=== PATIENT | male | born 1960 | race Caucasian/White ===

== ENCOUNTER → 2018-09-14 11:48 | Outpatient (CLI) | payer MEDICARE, SELFPAY ==
[2018-09-14 15:29] LABS: Absolute Lymphocyte Count 1.44 X10^3/ul (0.83-4.51); Absolute Neutrophil Count 5.3 X10^3/uL (2.0-7.7); Basophil# 0.02 X10^3/uL; Basophil% 0.3 % (0-1); Eosinophil# 0.13 X10^3/uL; Eosinophils% 1.8 % (0-5); Hematocrit 41.1 % (40-54); Hemoglobin 13.1 g/dl (13.0-16.5); Lymphocyte # 1.44 X10^3/ul (4.0); Lymphocyte % 20.1 % (19-41); Mean Corp Hgb Conc 31.9 g/gl (32-36); Mean Corpuscular Hgb 27.2 pg (27.0-32.0); Mean Corpuscular Volume 85.3 fL (80-94); Mean Platelet Vol. 10.9 fl (6.2-12.0); Monocyte# 0.27 X10^3/uL; Monocyte% 3.8 % (0-10); Neutrophil # 5.29 X10^3/uL (2.7-7.7); Neutrophil % 73.7 % (47-70); Platelet Count 170 K/mm3 (150-450); RBC Distribution Width CV 14.8 % (11.6-14.6); RBC Distribution Width SD 45.7 fl (35.1-43.9); Red Blood Count 4.82 M/mm3 (4.6-6.2); White Blood Count 7.2 K/mm3 (4.4-11.0)
[2018-09-14 15:34] LABS: POSITIVE COUNT NO; POSITIVE DIFFERENTIAL NO; POSITIVE MORPHOLOGY NO
[2018-09-14 15:50] LABS: ALB/GLOB Ratio 1.2 RATIO (0.9-2.4); AST(SGOT) 14 U/L (15-37); Alanine Aminotransfer ALT/SGPT 17 U/L (16-61); Albumin, Serum 4.4 g/dL (3.2-5.0); Alkaline Phosphatase 131 U/L (45-117); Anion Gap 6 (5-15); BUN 21 mg/dL (7-18); BUN/Creat Ratio 15.8 RATIO (10-20); Chloride 111 mmol/L (98-107); Creatinine, Serum 1.33 mg/dL (0.70-1.30); EST Glomerular Filtration Rate 58 mL/min (>60); Est Glom Filt Rate - Afr Amer 71 mL/min (>60); Globulin 3.8 g/dL (2.2-4.2); Glucose 81 mg/dL (74-106); Potassium 4.2 mmol/L (3.5-5.1); Protein, Total 8.2 g/dL (6.4-8.2); Sodium Level 140 mmol/L (136-145); Thyroid Stim Hormone (TSH) 2.05 uIU/mL (0.358-3.74)
== END ==
PROVIDERS: Family Provider Family Medicine; PCP Family Medicine; Referring Provider Family Medicine; Visit Provider Family Medicine
DX: G61.89 Other inflammatory polyneuropathies (principal); F80.9 Developmental disorder of speech and language, unspecified
CPT/HCPCS: 36415; 80053; 84443; 85025

== ENCOUNTER → 2018-10-08 16:43 | Outpatient (CLI) | payer MEDICARE, SELFPAY ==
--- NOTE | 2018-10-08 16:53 | CT_ITS ---
STUDY: CT BRAIN WITH AND WITHOUT CONTRAST REASON FOR EXAM: Male, 58 years old. Speech defect for 6 months RADIATION DOSAGE (If Supplied By Facility): CTDIvol = ( 44.99 ) mGy, DLP = ( 1580.97 ) mGycm TECHNIQUE: Transaxial CT imaging of the brain was performed pre and post contrast administration. The examination was performed with intravenous administration of 100 IV Isovue 370. Individualized dose optimization techniques were used for this CT. COMPARISON: None. FINDINGS: Brain parenchyma is intact without focal lesions or abnormal enhancement. There is no acute intracranial hemorrhage, extra parenchymal fluid collections, mass effect, hydrocephalus or herniation. The skull is intact. CT/Brain/Head W/WO Contrast IMPRESSION: Normal unenhanced and enhanced CT scan of the brain. Electronically Signed: Roseline Martinez, at 17:20 EDT Tel , Service support ,
== END ==
PROVIDERS: Family Provider Family Medicine; PCP Family Medicine; Referring Provider Family Medicine; Visit Provider Family Medicine
DX: F80.9 Developmental disorder of speech and language, unspecified (principal)
CPT/HCPCS: 70470; Q9967

== ENCOUNTER → 2018-12-15 11:10 | Outpatient (CLI) | payer MEDICARE, SELFPAY ==
[2018-12-15 12:54] LABS: Vitamin B12 393 pg/mL (211-911)
== END ==
PROVIDERS: Family Provider Family Medicine; PCP Family Medicine; Referring Provider Family Medicine; Visit Provider Family Medicine
DX: G61.89 Other inflammatory polyneuropathies (principal)
CPT/HCPCS: 36415; 82607; 82746

== ENCOUNTER → 2020-05-29 10:49 | Outpatient (CLI) | payer MEDICARE, SELFPAY ==
[2020-05-29 12:51] LABS: Absolute Lymphocyte Count 1.08 X10^3/uL (0.83-4.51); Absolute Neutrophil Count 4.4 X10^3/uL (2.0-7.7); Basophil# 0.05 X10^3/uL; Basophil% 0.8 % (0-1); Eosinophil# 0.14 X10^3/uL; Eosinophils% 2.3 % (0-5); Hemoglobin 12.4 g/dL (13.0-16.5); Lymphocyte # 1.08 X10^3/ul (4.0); Lymphocyte % 18.1 % (19-41); Mean Corp Hgb Conc 31.8 g/dL (32-36); Mean Corpuscular Hgb 28.8 pg (27.0-32.0); Mean Corpuscular Volume 90.7 fL (80-94); Mean Platelet Vol. 10.3 fl (6.2-12.0); Monocyte# 0.25 X10^3/uL; Monocyte% 4.2 % (0-10); NRBC Flagged by Analyzer 0 % (0-5); Neutrophil # 4.43 X10^3/uL (2.7-7.7); Neutrophil % 74.3 % (47-70); Platelet Count 161 K/mm3 (150-450); RBC Distribution Width CV 13.4 % (11.6-14.6); RBC Distribution Width SD 45.1 fl (35.1-43.9)
[2020-05-29 12:56] LABS: Vitamin B12 441 pg/mL (211-911)
[2020-05-29 13:11] LABS: AST(SGOT) 23 U/L (15-37); Alanine Aminotransfer ALT/SGPT 32 U/L (16-61); Alkaline Phosphatase 119 U/L (45-117); Anion Gap 6 (5-15); BUN 14 mg/dL (7-18); BUN/Creat Ratio 10.8 RATIO (10-20); Bilirubin, Direct 0.09 mg/dL (0.00-0.30); Chloride 110 mmol/L (98-107); Cholesterol 313 mg/dL (200); EST Glomerular Filtration Rate 60 mL/min (>60); Est Glom Filt Rate - Afr Amer 72 mL/min (>60); Globulin 4.2 g/dL (2.2-4.2); Glucose 92 mg/dL (74-106); High Density Lipoprotein 37 mg/dL; Protein, Total 8.2 g/dL (6.4-8.2); Sodium Level 140 mmol/L (136-145); Thyroid Stim Hormone (TSH) 1.61 uIU/mL (0.358-3.74); Triglycerides 591 mg/dL
== END ==
PROVIDERS: PCP Family Medicine; Referring Provider Family Medicine; Visit Provider Family Medicine
DX: G61.89 Other inflammatory polyneuropathies (principal); F31.9 Bipolar disorder, unspecified; E78.00 Pure hypercholesterolemia, unspecified; F10.20 Alcohol dependence, uncomplicated
CPT/HCPCS: 36415; 80053; 80061; 82248; 82607; 82746; 84443; 85025

== ENCOUNTER → 2021-03-26 12:17 | Outpatient (CLI) | payer MEDICARE, SELFPAY ==
--- NOTE | 2021-03-26 13:25 | SP.MBSS_ITS ---
Modified Barium Swallow - Patient Information Study Date: 03/26/21 Study Time: 12:30 Direct Billable Minutes: 105 Total Minutes procedure & reportin Diagnosis: Schizophrenia (F20.9), Generalized weakness (M62.81) Referring Physician: Kvng Leyva Reason for Referral: Objectively assess swallowing and provide recommendations for least restrictive diet. Medical History: PMH: Schizophrenia, metabolic acidemia, HLD, muscle weakness, constipation, bipolar, difficulty walking. The patient is a poor historian with responses of few words. He reports difficulty swallowing with foods. He denies recent pneumonia. He stated I can't swallow as MANA[employer] began trials. Current Diet Ordered: Puree Textures / Thin Liquids Mental Status: Impaired - Slow processing, responses limited to a few words, difficult to discern comprehension deficits vs. unwilling to trial strategies. Respiratory Status: Oxygenating on Room Air - Penetration-Aspiration Scale Penetration-Aspiration Scale: OBJECTIVE ASSESSMENT OF SWALLOW FUNCTION (QUANTITATIVE ? PER TRIAL): PENETRATION / ASPIRATION SCALE (KIRK): 1 = does not enter airway 2 = enters airway/above vocal folds/ejected 3 = enters airway/above vocal folds/not ejected 4 = enters airway/contacts vocal folds/ejected 5 = enters airway/contacts vocal folds/not ejected 6 = enters airway/below vocal folds/ejected 7 = enters airway/below vocal folds/not ejected despite effort 8 = enters airway/below vocal folds/no effort VIDEOFLOROSCOPIC SCALE SCORE (KIRK): Grade I = aspiration of material that has penetrated into the laryngeal vestibule, intact cough reflex Grade II = aspiration < 10 % of the bolus, intact cough reflex Grade III = aspiration of < 10 % of the bolus, reduced cough reflex or aspiration of > 10 % of the bolus, intact cough reflex Grade IV = aspiration of > 10 % of the bolus, reduced cough reflex - Penetration-Aspiration Scale Score Thin Liquid via teaspoon Result: 3= enters airways/above vocal folds/not ejected Thin Liquid via teaspoon Trial 2 Result: 2= enter airway/above vocal folds/ejected Thin Liquid via small single sip from cup Result: 5= enters airways/contacts vocal folds/not ejected Thin Liquid via single sip from straw Result: 8= enters airway/below vocal folds/no effort Comment: [employer] cued cough and reswallow after SILENT aspiration. Cough ineffective and pt shaking head no when cued to reswallow. Thin Liquid via teaspoon Trial 3 Result: 2= enter airway/above vocal folds/ejected [place] Thick Liquid via teaspoon Result: 2= enter airway/above vocal folds/ejected [place] Thick Liquid via teaspoon Result: 1= does not enter airway Pudding Result: 3= enters airways/above vocal folds/not ejected [place] Thick Liquid via teaspoon Trial 2 Result: 2= enter airway/above vocal folds/ejected [place] Thick Liquid via teaspoon Trial 3 Result: 3= enters airways/above vocal folds/not ejected [place] Thick Liquid via teaspoon Trial 2 Result: 2= enter airway/above vocal folds/ejected 1/2 teaspoon [place] Thick Liquid Result: 2= enter airway/above vocal folds/ejected 1/2 teaspoon [place] Thick Liquid Result: 2= enter airway/above vocal folds/ejected - Increased penetration of pharyngeal residue - [employer] cued double swallow to prevent potential aspiration event. - Oral Phase Labial Seal: Escape beyond mid-chin Tongue Control During Bolus Hold: Posterior escape of greater than half of bolus Bolus Preparation/Mastication: Minimal chewing/mashing with majority of bolus u nchewed - DNT solids due to concerns for choking with severe oral phase deficits. Bolus Transport/Lingual Motion: Repetitive/disorganized tongue motion Oral Residue: Majority of bolus remaining - Pharyngeal Phase Initiation of Pharyngeal Swallow: Bolus head in pyriforms Soft Palate Elevation: Trace column of contrast/air between soft palate and pharyngeal wall Laryngeal Elevation: Partial superior movement thyroid cart/partial apprx aryt- epig petiole Anterior Hyoid Excursion: Partial anterior movement Epiglottic Movement: Partial inversion Laryngeal Vestibule Closure at Height of Swallow: Incomplete; narrow column of air/contrast in laryngeal vestibule Pharyngeal Stripping Wave: Present - diminished Pharyngoesophageal Segment Opening: Parital distension and partial duration; parital obstruction of flow Tongue Base Retraction: Narrow column of contrast between tongue base & post. pharyngeal wall Pharyngeal Residue: Collection of residue within or on pharyngeal structures - Esophageal Phase Esophageal Clearance: Esophageal retention - Trace lining of bolus in upper esophagus. - Treatment Strategies Effects of treatment strategies attemped:: Cough = Ineffective. Double swallow = Effective. Decreased bolus size = Effective. - Diagnosis/Impression Diagnosis: moderate-severe oropharyngeal phase dysphagia (R13.12) Impression: The patient presents with severe oral phase deficits in bolus control and A-P transport. The patient demonstrated poor oral clearance of various trials with greater than 50 percent of the bolus remaining in the oral cavity after the swallow. Moderate-Severe oral residue after the swallow was present. Anterior spillage of various contrasts due to labial weakness. He demonstrated oral holding of second pudding trial and benefited from cues to initiate the swallow. He also demonstrated lingual pumping during A-P transport. The patient presents with moderate-severe pharyngeal phase impairments. He has delayed initiation of the pharyngeal swallow, which improved with decreased bolus size. He also demonstrates decreased airway protection due to deficits in laryngeal elevation, anterior hyoid excursion. Decreased tongue base retraction and decreased duration of UES opening resulted in mild-moderate pharyngeal residues, especially with thickened liquid and pudding trials. The patient presented with SILENT aspiration of thin liquids via straw, deep penetration without full ejection of thin liquids via cup, and penetration above the vocal folds without full ejection of thin liquids via tsp. He presented with moderate pharyngeal residue of thickened liquid and pudding trials, which he would penetrate on subsequent swallows. The patient did not reliably follow cues to initiate use of strategies, such as cough & reswallow and double swallows. - Recommendations Diet: Puree Textures, Thin Liquids Comment: CLOSELY MONITOR LUNG SOUNDS Compensatory Strategies: Small Bites - 1/2 tsp bites, Small Sips - 1/2 tsp sips, Liquid by Teaspoon Only, Multiple Swallows - Encourage double swallows on each sip/bite., Sitting upright, Remain sitting upright for 30 minutes after PO intake, Assist with verbal cues to use recommended strategies Supervision: Total Feed Recommend Repeat Modified Barium Swallow: Yes - Would recommend repeat study in 8-10 week after implementation of oropharyngeal exercise program. Need for Skilled Speech Therapy Services: Yes Comment: Will recommend the patient for continued dysphagia therapy to address deficits in oropharyngeal swallow function. Would consider the patient for oropharyngeal strengthening to improve lingual strength and coordination, tongue base retraction, swallow onset, and laryngeal elevation. The patient would benefit from thorough education regarding diet recommendations and recommended compensatory strategies. Closely monitor lung sounds with continued assessment of diet tolerance. Would consider the patient for downgrade to NPO with alternative means of nutrition if worsening lung sounds or a change in pulmonary status, as he is a HIGH risk for aspiration across all consistencies. Recommended Referrals: Dietitian Consult - Concerns for adequate nutrition and intake with strict aspiration precautions. Education Completed: 1. Described result of evaluation., 7. Pt requires further education on strategies & risks. - Status Active ST Patient: Active - Contact Information [facility] Speech Therapy:: Janelle Mendez M.A. [facility]-[employer] Speech-Language Pathologist [address] [place] [address] [place] [address] [email or web address] [phone] 03/26/21 14:04
== END ==
PROVIDERS: PCP Family Medicine; Referring Provider Family Medicine; Visit Provider Family Medicine
DX: R13.12 Dysphagia, oropharyngeal phase (principal)
CPT/HCPCS: 74230; 92611

== ENCOUNTER 2021-04-02 23:10 | Inpatient (IN) | payer MEDICARE, SELFPAY ==
[2021-04-02 23:12] VITALS: BP 90/79; PULSE 126; RESP 41; TEMP 39.1; O2SAT 82; BMI 20.3
[2021-04-02 23:23] VITALS: PULSE 122; RESP 43; O2SAT 88
[2021-04-02 23:25] VITALS: BP 101/75
[2021-04-02 23:33] VITALS: BP 105/77; PULSE 123; RESP 42; TEMP 39.3; O2SAT 90
[2021-04-02] MEDS: Midazolam 2 MG/2 ML Syringe 5 MG IV (23:39)
[2021-04-02] MEDS: Rocuronium Bromide 50 MG/5 ML Vial 100 MG IV (23:41)
[2021-04-02 23:42] VITALS: PULSE 113; RESP 20; RESP 21; O2SAT 90
--- NOTE | 2021-04-02 23:49 | EKG12_ITS ---
Test Reason : DYSRHYTHMIA Blood Pressure : / mmHG Vent. Rate : 124 BPM Atrial Rate : 124 BPM P-R Int : 128 ms QRS Dur : 078 ms QT Int : 352 ms P-R-T Axes : 073 -49 082 degrees QTc Int : 505 ms Sinus tachycardia Left axis deviation ST & T wave abnormality, consider inferior ischemia ST & T wave abnormality, consider anterolateral ischemia Abnormal ECG Confirmed by NAYAN HOANG, FUNMI ([id number]), editor book KOREY CARLOS ([id number]) on 04/04/2021 8:53:38 AM Referred By: BB Confirmed By:FUNMI SPICER MD
--- NOTE | 2021-04-02 23:53 | EX.ED.DYSGE1 ---
HPI History of Present Illness Chief Complaint: Alt LOC Informant: EMS and SNF Limited: coma Narrative Narrative: Patient was sent in from [facility] with a temp up to 105 and obtunded. He is on Levaquin 500 mg daily, [facility] staff does not know why he is on it or for how long. Apparently there is a breakout of Covid at this [facility] and allegedly they stopped testing people because they were so many positives. According to [facility] staff, on day shift he was fine and they found him obtunded. He usually is ambulatory at baseline, alert and oriented x3, full code. His past medical history accompanying the [facility] paperwork states that he has a history of schizophrenia hyperlipidemia and bipolar disorder. It is unknown why he is in a correction facility at this time. [facility] Medical History Bipolar 1 disorder Hyperlipemia Reduced mobility Schizophrenia Home Medications atorvastatin 04/02/21 [History Last Taken Unknown] benztropine 1 mg PO TID PRN 04/02/21 [History Last Taken Unknown] gabapentin 300 mg PO TID 04/02/21 [History Last Taken Unknown] levofloxacin [Levaquin] 500 mg PO DAILY 04/02/21 [History Last Taken Unknown] risperidone 0.5 mg PO QHS 04/02/21 [History Last Taken Unknown] risperidone 4 mg PO QHS 04/02/21 [History Last Taken Unknown] sertraline 100 mg PO DAILY 04/02/21 [History Last Taken Unknown] topiramate 150 mg PO QHS 04/02/21 [History Last Taken Unknown] Allergy/AdvReac Type Severity Reaction Status Date / Time No Known Allergies Allergy Verified 04/02/21 23:16 Social History Smoking Status: Unknown if ever smoked ROS ROS ED Review of Systems ROS Unobtainable: due to mental status EXAM Physical Exam Const Vital Signs: 04/02/21 23:12 04/02/21 23:23 04/02/21 23:25 Temperature 102.3 F H Temperature Source Temporal Pulse Rate 126 H 122 H Respiratory Rate 41 H 43 H Respiratory Effort Labored Respiratory Depth Respiratory Pattern Tachypnea Blood Pressure 90/79 101/75 Blood Pressure Mean 82 83 Blood Pressure Source Pulse Ox 82 88 Oxygen Delivery Method Room Air Non-Rebreather Oxygen Flow Rate (L/min) 15 04/02/21 23:33 04/02/21 23:40 04/02/21 23:57 Temperature 102.7 F H 105.2 F H Temperature Source Core Core Pulse Rate 123 H 110 H Respiratory Rate 42 H 15 Respiratory Effort Labored Accessory Muscle Use Respiratory Depth Shallow Respiratory Pattern Tachypnea Blood Pressure 105/77 113/82 H Blood Pressure Mean 86 92 Blood Pressure Source Pulse Ox 90 90 Oxygen Delivery Method Non-Rebreather Mechanical Ventilator Oxygen Flow Rate (L/min) 15 04/03/21 00:16 04/03/21 00:55 04/03/21 01:08 Temperature 104.1 F H 103.2 F H 102.9 F H Temperature Source Core Core Core Pulse Rate 102 H 104 H 103 H Respiratory Rate 20 H 20 H 20 H Respiratory Effort Respiratory Depth Respiratory Pattern Blood Pressure 71/58 L 79/56 L 74/57 L Blood Pressure Mean 62 63 62 Blood Pressure Source Monitor Pulse Ox 95 95 95 Oxygen Delivery Method Mechanical Ventilator Mechanical Ventilator Mechanical Ventilator Oxygen Flow Rate (L/min) Positive well nourished and well developed Constitutional Narrative: obtunded General Appearance ED: well developed HEENT Reports dry mucous membranes normocephalic and atraumatic Mouth ED: Yes dry mucous membranes Mouth: dry mucous membranes Eyes PERRL Eyes Narrative: Patient blinks with confrontation bilaterally Neck full ROM and supple Resp Resp Narrative: Equal breath sounds bilaterally, respiratory distress, poor air movement, trachea midline. Clear anteriorly. Cardio regular rate, regular rhythm and no murmurs Rate: tachycardic GI non-tender and non-distended Auscultation: normoactive bowel sounds Palpation: soft Extremity normal to inspection General Extremety ED: Negative for edema or pulses abnormal General Extremity: Negative for edema or pulses abnormal Neuro Neuro Narrative: Patient is obtunded, all 4 extremities flaccid, occasionally withdraws to painful stimulus, but for the most part there is no movement with stimulus Didi Coma Scale: document GCS findings Spontaneous None None 6 Skin no rashes or lesions noted and no wounds MDM MDM MDM Narrative Medical decision making narrative: This patient is obtunded, on a nonrebreather he is at 88-90%, therefore staff was organizing we intubated him immediately, emergently. He was pretreated with Versed 5 mg and rocuronium 100 mg prior to intubation which was otherwise uncomplicated. There were very thick secretions present in the glottis that the patient was not gagging on. Septic work-up obtained. His EKG shows ST depressions septal laterally but no sign of a STEMI. Labs are noted. Patient has a negative rapid Covid, his chest x-ray shows left lower lobe infiltrate but does not look bad compared to his profound hypoxemia so CT angiography of the chest was performed. Radiology states he does not appear to have pulmonary emboli, but he does have right lower lobe infiltrate as well, does not look like Covid on the radiography, and it is consistent with aspiration pneumonia. Given the above findings clinically and emesis on his face upon arrival, he will be covered for aspiration pneumonia with Unasyn and vancomycin given he is a [facility] resident. Before finishing his 30 cc/kg fluid bolus, he was hypotensive and not responding well, so the Levophed was started, followed by central line placement. Patient's coags are elevated. He does not appear to be on any anticoagulants. During the line, it was complicated by syringes and needles clotting off. I suspect he may be in DIC. I sent a type and screen and I discussed this with the hospitalist and dredge captain. Lab Data Attestation: I reviewed the patient's lab results. Labs: Laboratory Results - last 24 hr 04/02/21 04/02/21 04/02/21 23:20 23:20 23:20 WBC 8.4 RBC 5.15 Hgb 15.4 Hct 46.4 MCV 90.1 MCH 29.9 MCHC 33.2 RDW Std Deviation 46.4 H RDW Coeff of Sandra 14.1 Plt Count 212 MPV 12.5 H Immature Gran % (Auto) 0.400 Neut % (Auto) 90.5 H Lymph % (Auto) 5.7 L [place] % (Auto) 3.3 Eos % (Auto) 0.0 Baso % (Auto) 0.1 Absolute Neuts (auto) 7.6 Absolute Lymphs (auto) 0.48 L Nucleated RBC % 0 PT 25.4 H INR 2.4 APTT 46.3 H Sodium Cancelled Potassium Cancelled Chloride Cancelled Carbon Dioxide Cancelled Anion Gap Cancelled BUN Cancelled Creatinine Cancelled Estim Creat Clear Calc Cancelled Est GFR (MDRD) Af Amer Cancelled Est GFR (MDRD) Non-Af Cancelled BUN/Creatinine Ratio Cancelled Glucose Cancelled Lactic Acid Calcium Cancelled Total Bilirubin Cancelled AST Cancelled ALT Cancelled Alkaline Phosphatase Cancelled Troponin I High Sens Cancelled Total Protein Cancelled Albumin Cancelled Globulin Cancelled Albumin/Globulin Ratio Cancelled Urine Color Urine Clarity Urine pH Ur Specific [place] Urine Protein Urine Glucose (UA) Urine Ketones Urine Occult Blood Urine Nitrite Urine Bilirubin Urine Urobilinogen Ur Leukocyte Esterase Urine RBC Urine WBC Ur Squamous Epith Cells Ur Renal Epithelial Cell Amorphous Sediment Urine Bacteria Hyaline Casts Coarse Granular Casts Urine Mucus 04/02/21 04/03/21 04/03/21 23:20 00:10 00:55 WBC RBC Hgb Hct MCV MCH MCHC RDW Std Deviation RDW Coeff of Sandra Plt Count MPV Immature Gran % (Auto) Neut % (Auto) Lymph % (Auto) [place] % (Auto) Eos % (Auto) Baso % (Auto) Absolute Neuts (auto) Absolute Lymphs (auto) Nucleated RBC % PT INR APTT Sodium Potassium Chloride Carbon Dioxide Anion Gap BUN Creatinine Estim Creat Clear Calc Est GFR (MDRD) Af Amer Est GFR (MDRD) Non-Af BUN/Creatinine Ratio Glucose Lactic Acid Cancelled 1.0 Calcium Total Bilirubin AST ALT Alkaline Phosphatase Troponin I High Sens Total Protein Albumin Globulin Albumin/Globulin Ratio Urine Color Red Urine Clarity Turbid Urine pH 5.0 Ur Specific [place] 1.025 Urine Protein 500 H Urine Glucose (UA) Normal Urine Ketones 5 H Urine Occult Blood 250 H Urine Nitrite Negative Urine Bilirubin Negative Urine Urobilinogen 1 H Ur Leukocyte Esterase Negative Urine RBC > 100 SEEN Urine WBC 10-25 SEEN Ur Squamous Epith Cells 0-5 SEEN Ur Renal Epithelial Cell 10-25 SEEN Amorphous Sediment 1+ Urine Bacteria 3+ Hyaline Casts 0-5 SEEN Coarse Granular Casts 10-25 SEEN Urine Mucus 0 SEEN 04/03/21 00:55 WBC RBC Hgb Hct MCV MCH MCHC RDW Std Deviation RDW Coeff of Sandra Plt Count MPV Immature Gran % (Auto) Neut % (Auto) Lymph % (Auto) [place] % (Auto) Eos % (Auto) Baso % (Auto) Absolute Neuts (auto) Absolute Lymphs (auto) Nucleated RBC % PT INR APTT Sodium 151 H Potassium 3.0 L Chloride 117 H Carbon Dioxide 23.0 Anion Gap 11 BUN 70 H Creatinine 2.23 H Estim Creat Clear Calc 33.03 Est GFR (MDRD) Af Amer 39 L Est GFR (MDRD) Non-Af 32 L BUN/Creatinine Ratio 31.4 H Glucose 124 H Lactic Acid Calcium 8.0 L Total Bilirubin 0.80 AST 85 H ALT 31 Alkaline Phosphatase 46 Troponin I High Sens 1312 H* Total Protein 6.3 L Albumin 1.8 L Globulin 4.5 H Albumin/Globulin Ratio 0.4 L Urine Color Urine Clarity Urine pH Ur Specific [place] Urine Protein Urine Glucose (UA) Urine Ketones Urine Occult Blood Urine Nitrite Urine Bilirubin Urine Urobilinogen Ur Leukocyte Esterase Urine RBC Urine WBC Ur Squamous Epith Cells Ur Renal Epithelial Cell Amorphous Sediment Urine Bacteria Hyaline Casts Coarse Granular Casts Urine Mucus Radiography Diagnostic Testing: Clinical Impression(s) from Imaging Studies Brain CT 04/03/21 23:49 IMPRESSION: Asymmetric appearance of the CSF spaces may represent a secondary or indirect sign of edema in the right hemisphere which could be associated with injury possible hypoxic event or infarct. When appropriate recommend consideration for follow-up MRI. No visualized acute hemorrhage. The patient''s NG tube is coiled in the oropharynx. This should be repositioned. Electronically Signed: Antonina Barron MD at 1:43 EST Tel , Service support , EKG Initial EKG: Attestation: I personally reviewed and interpreted this EKG as follows: Interpretation: Sinus Tachycardia and S-T Depression (sept-lat, no BILL) Procedures Intubations Intubation Method: orotracheal (With MAC 4 laryngoscope, I visualize the tube passing through the cords.) Intubation Verification: Positive color change and Bilateral breath sounds confirmed Intubation Complications: oral-unsuccessful attempt (Single unsuccessful attempt due to narrow glottis and 8.0F tube not fitting; 7.5 was barely able to fit and was inserted at 22 cm at the lip where it was secured.) and O2 saturation decreased (89%) Other Procedures Procedure(s): Central line placement left subclavian vein: Sterile prep and drape in usual fashion, proceduralist head to toe sterile dressing glove. Initial catheter that was placed was difficult and the wire would not come out and subsequently due to attempting to pull it out, the wire broke. The entire catheter was removed and a new one was placed without any difficulty, sutured in place with chlorhexidine days, modified Seldinger technique. Verified by chest x-ray. Critical Care Time Critical Care Time: Yes Critical care time (excluding procedures): 30-74 minutes (45 min), Including time spent:, Discussing w/Patient &/or Family/Tray Room Worker, Discussing w/Consultants, Arranging Admission or Transfer and Performing Direct Patient Care at Bedside Discharge Plan Dx/Rx/DC Orders Clinical Impression: Septic shock, Aspiration pneumonia, Acute respiratory failure with hypoxia, DIC (disseminated intravascular coagulation), DEEPIKA (acute kidney injury), Elevated troponin, Dehydration, Hypokalemia Disposition Disposition: Acute Care [facility]
[2021-04-02 23:57] VITALS: BP 113/82; PULSE 110; RESP 15; TEMP 40.7; O2SAT 90
[2021-04-03] VITALS (45 sets, daily range): BP systolic 71–129; BP diastolic 56–102; PULSE 81–115; RESP 16–531; TEMP 37–40.1; O2SAT 92–100; BMI 20.6
[2021-04-03 00:04] LABS: Absolute Lymphocyte Count 0.48 X10^3/uL (0.83-4.51); Absolute Neutrophil Count 7.6 X10^3/uL (2.0-7.7); Basophil# 0.01 X10^3/uL; Basophil% 0.1 % (0-1); Hematocrit 46.4 % (40-54); Hemoglobin 15.4 g/dL (13.0-16.5); Lymphocyte # 0.48 X10^3/ul (0.83-4.51); Lymphocyte % 5.7 % (19-41); Mean Corp Hgb Conc 33.2 g/dL (32-36); Mean Corpuscular Hgb 29.9 pg (27.0-32.0); Mean Corpuscular Volume 90.1 fL (80-94); Mean Platelet Vol. 12.5 fl (6.2-12.0); Monocyte# 0.28 X10^3/uL; Monocyte% 3.3 % (0-10); NRBC Flagged by Analyzer 0 % (0-5); Neutrophil # 7.62 X10^3/uL (2.7-7.7); Neutrophil % 90.5 % (47-70); POSITIVE DIFFERENTIAL YES; Platelet Count 212 K/mm3 (150-450); RBC Distribution Width CV 14.1 % (11.6-14.6); RBC Distribution Width SD 46.4 fl (35.1-43.9); Red Blood Count 5.15 M/mm3 (4.6-6.2); White Blood Count 8.4 K/mm3 (4.4-11.0)
[2021-04-03 00:06] LABS: Differential Indicated SCAN CRITERIA MET
[2021-04-03] MEDS: 0.9% Normal Saline 1,000 ML 999 ML IV ×3 (00:10→05:25)
--- NOTE | 2021-04-03 00:14 | RAD_ITS ---
STUDY: X-RAY CHEST REASON FOR EXAM: Male, 61 years old. ett placement TECHNIQUE: Single AP portable view of the chest. COMPARISON: None. FINDINGS: An endotracheal tube is present 3.0 cm above the nabeel. An NG tube is present with side port is just at the gastroesophageal junction. There is patchy opacity in the left lung base greater than right. Normal size heart. Normal mediastinum and marcus. Normal visualized pulmonary arteries. Normal visualized aortic arch and descending thoracic aorta. Normal visualized thoracic spine. Normal visualized ribs, clavicles, and shoulders. There is no demonstrated abnormality of the visualized soft tissue structures of the upper abdomen. RAD/Chest 1 View (Portable) IMPRESSION: Bilateral lower lobe pneumonia. NG tube tip in the stomach. Endotracheal tube 3.0 cm above the nabeel. Electronically Signed: Antonina Barron MD at 1:58 EST Tel , Service support ,
[2021-04-03 00:15] LABS: Mucous, Urine 0 SEEN /hpf (<or=2+)
[2021-04-03 00:29] LABS: Color, Urine Red (Yellow); Glucose, Dipstick Normal (Normal); Ketone-Dipstick 5 mg/dl (Negative); Leukocyte Esterase-Dipstick Negative /ul (Negative); Nitrite-Dipstick Negative (Negative); Occult Blood-Urine 250 /ul (Negative); Protein-Dipstick 500 mg/dl (Negative); Specific Gravity, Urine 1.025 (1.002-1.030); Urine Bilirubin Dipstick Negative (Negative); Urine Clarity Turbid (Clear); Urine Urobilinogen 1 mg/dl (Normal)
--- NOTE | 2021-04-03 00:30 | CT_ITS ---
STUDY: CTA CHEST REASON FOR EXAM: Male, 61 years old. Hypoxemia, resp failure RADIATION DOSAGE (If Supplied By Facility): CTDIvol = ( 18.19 ) mGy, DLP = ( 495.99 ) mGycm TECHNIQUE: The examination was performed with the intravenous administration of IV 100mL Isovue-370. Post-processing of the angiographic images was performed, with multiplanar reformation and 3D reconstruction. Individualized dose optimization techniques were used for this CT. COMPARISON: Chest x-ray 04/03/2021 FINDINGS: Normal enhancement of the main pulmonary artery and right and left pulmonary arteries. Normal enhancement of the bilateral peripheral pulmonary arteries. There is no demonstrated pulmonary embolism. Normal thoracic aorta and visualized great vessels. There is no demonstrated aortic dissection. There is a small pericardial effusion. There is coronary calcification. There is borderline cardiac enlargement. Normal mediastinum. Normal hilar regions. The endotracheal tube is above the nabeel. The lungs are well expanded. There is dense consolidation within the left lung base. There are patchy opacities within the lingula and left lower lobe. There is bronchiectasis with peribronchial inflammatory change and consolidation within the right lower lobe. Normal pleura. Normal chest wall structures. There are degenerative changes of thoracic spine. There is mild splenomegaly. There is moderate stool in the colon. There are few gallstones present. An ET tube is present the tip is in the stomach. CT/CTA Chest W/WO Contrast IMPRESSION: No demonstrated pulmonary embolism or arterial dissection. Bilateral lower lobe consolidation consistent with pneumonia. In this setting consider aspiration pneumonia. Covid virus thought to be less likely. Coronary artery calcification trace pericardial effusion. Lines as detailed above. Electronically Signed: Antonina Barron MD at 1:56 EST Tel , Service support ,
--- NOTE | 2021-04-03 00:46 | PCM.HP.STD ---
HPI - General General Date of Admission: 04/03/21 Date of Service: 04/03/21 Chief Complaint: Altered mental status HPI Narrative RICKY ZIEGLER, is a 61 M who presented to the emergency department was coming hospital on 04/02/2021 secondary to altered level of consciousness. The patient is intubated on my exam and I am unable to get any history other than what has previously been documented by the ER physician. According to care home staff he was fine on day shift and then this evening they found him obtunded. There is evidently an outbreak of Covid at his nursing facility and they stopped testing people because he had so many positives there. He is on Levaquin at baseline although it is unknown why he is on this or how long he has been on this. At baseline he is ambulatory and alert and oriented x3. It is unclear why he resides in a nursing facility. In the emergency department he was markedly febrile with a T-max of 105.2 core temp, tachycardic, hypotensive, tachypneic, and is now on mechanical ventilation. His oxygen saturation was 82% upon arrival. He was intubated for altered mental status and hypoxia. His CBC in the emergency department showed no white count elevation and was normal otherwise as well. His coags were performed and showed an elevated INR/PT and PTT. His INR was 2.4. It does not appear that he is on any anticoagulants at baseline. His BMP is markedly abnormal with an elevated sodium at 151, hypokalemia with a potassium of 3.0, hyperchloremia with a chloride of 117, his serum bicarb and anion gap are normal. His BUN and creatinine are markedly elevated at 70 and 2.23 with his baseline being 1-1.3. His glucose was mildly elevated 124. His lactic acid was normal. He has mild AST elevation but normal ALT and his high-sensitivity troponin is elevated at 1312 which is consistent with an AST elevation. His UA is abnormal with an elevated urobilinogen and Hemoccult positive as well as markedly elevated specific gravity of 1.025. He does have some white cells on his UA as well as 3+ bacteria but no leukoesterase or nitrite production. His chest x-ray shows no acute pulmonary process and the ET tube is in place approximately 2 to 3 cm above the nabeel. The CT of his head shows asymmetric appearance of CFS spaces which is concerning for edema in the right hemisphere including injury or possible hypoxic event/infarct and a follow-up MRI was recommended. His EKG shows inferior lateral ST depression. A CT of his chest shows no PE but suggestive of bilateral infiltrates. His COVID-19 was negative. Per discussion with his son who was at bedside upon my evaluation the patient was admitted to [facility] after hospitalization up near [place] ([facility]) secondary to the inability of him to be able to walk. It sounds as if the family was never given an etiology for this process. Son also indicates that his father was a intense alcoholic previously but had since quit drinking in 2007. This may explain his coagulopathy. He also has a history of tobacco abuse but is currently a non-smoker since 2014. [facility] Medical History (Updated 04/03/21 @ 02:[address] Yenifer Treadwell DO) Alcoholism in recovery Bipolar 1 disorder Debility History of tobacco abuse Hyperlipemia Reduced mobility Schizophrenia Home Medications atorvastatin 04/02/21 [History Last Taken Unknown] benztropine 1 mg PO TID PRN 04/02/21 [History Last Taken Unknown] gabapentin 300 mg PO TID 04/02/21 [History Last Taken Unknown] levofloxacin [Levaquin] 500 mg PO DAILY 04/02/21 [History Last Taken Unknown] risperidone 0.5 mg PO QHS 04/02/21 [History Last Taken Unknown] risperidone 4 mg PO QHS 04/02/21 [History Last Taken Unknown] sertraline 100 mg PO DAILY 04/02/21 [History Last Taken Unknown] topiramate 150 mg PO QHS 04/02/21 [History Last Taken Unknown] Allergy/AdvReac Type Severity Reaction Status Date / Time No Known Allergies Allergy Verified 04/02/21 23:16 Social History (Updated 04/03/21 @ 02:[address] Yenifer Treadwell DO) Smoking Status: Former smoker alcohol intake: former details: Was a heavy drinker up until 2007 substance use type: does not use ROS ROS Narrative I was unable to obtain family, surgical, social history secondary to patient being intubated and sedated Review of Systems ROS Unobtainable: due to endotracheal tube Vital Signs Vital Signs Vital Signs: 04/02/21 23:12 04/02/21 23:23 04/02/21 23:25 Temperature 102.3 F H Temperature Source Temporal Pulse Rate 126 H 122 H Respiratory Rate 41 H 43 H Respiratory Effort Labored Respiratory Depth Respiratory Pattern Tachypnea Blood Pressure 90/79 101/75 Blood Pressure Mean 82 83 Pulse Ox 82 88 Oxygen Delivery Method Room Air Non-Rebreather Oxygen Flow Rate (L/min) 15 04/02/21 23:33 04/02/21 23:40 04/02/21 23:57 Temperature 102.7 F H 105.2 F H Temperature Source Core Core Pulse Rate 123 H 110 H Respiratory Rate 42 H 15 Respiratory Effort Labored Accessory Muscle Use Respiratory Depth Shallow Respiratory Pattern Tachypnea Blood Pressure 105/77 113/82 H Blood Pressure Mean 86 92 Pulse Ox 90 90 Oxygen Delivery Method Non-Rebreather Mechanical Ventilator Oxygen Flow Rate (L/min) 15 04/03/21 00:16 Temperature 104.1 F H Temperature Source Core Pulse Rate 102 H Respiratory Rate 20 H Respiratory Effort Respiratory Depth Respiratory Pattern Blood Pressure 71/58 L Blood Pressure Mean 62 Pulse Ox 95 Oxygen Delivery Method Mechanical Ventilator Oxygen Flow Rate (L/min) Weight Weight: 68 kg Body Mass Index (BMI) 20.3 Physical Exam Const Constitutional Narrative: Upper middle-aged white male lying in bed, currently intubated and sedated, appears much older than stated age HEENT normocephalic and head/scalp atraumatic HEENT Narrative: ET tube in place, mucous membranes are significantly dry Eyes PERRL and conjunctivae normal Eyes Narrative: Unable to assess extraocular movement secondary to intubation and sedation, no scleral icterus Neck no lymphadenopathy, supple, no JVD and no carotid bruits Neck Narrative: Trachea midline, no thyroid enlargement Resp normal respiratory effort, no retractions, no use of accessory muscles and clear to auscultation bilaterally Resp Narrative: Diffusely diminished but clear, intubated Auscultation: Negative for crackles, rales, rhonchi or wheezes Cardio regular rate, S1 normal heart sound, S2 normal heart sound, no murmurs, no rub, no gallops, no clicks and no JVD GI normal to inspection, nondistended, normoactive bowel sounds, soft to palpation, non-tender and non-distended Extremity no clubbing, cyanosis or edema Extremity Narrative: Missing hallux of left foot Peripheral Pulses: Yes pulses 2+ throughout Skin No no rashes or lesions noted, No no wounds, skin turgor normal, no jaundice, no petechiae and no mottling Skin Narrative: To right hallux with erythema and onychomycosis at nail, small stage I right-sided sacral pressure wound Neuro Neuro Narrative: Patient is not responsive to noxious stimulus, pupils are reactive, no cough with suctioning, reflexes are 2+ upper and lower extremities, no clonus, exam limited secondary to mental status Psych Psych Narrative: Unable to assess Results Lab / Micro Data Attestation: I reviewed the patient's lab results. Result Diagrams: 04/02/21 23:20 04/03/21 00:55 Labs: Laboratory Results - last 24 hr 04/02/21 23:20: WBC 8.4, RBC 5.15, Hgb 15.4, Hct 46.4, MCV 90.1, MCH 29.9, MCHC 33.2, RDW Std Deviation 46.4 H, RDW Coeff of Sandra 14.1, Plt Count 212, MPV 12.5 H, Immature Gran % (Auto) 0.400, Neut % (Auto) 90.5 H, Lymph % (Auto) 5.7 L, Archuleta % (Auto) 3.3, Eos % (Auto) 0.0, Baso % (Auto) 0.1, Absolute Neuts (auto) 7.6, Absolute Lymphs (auto) 0.48 L, Nucleated RBC % 0 04/02/21 23:20: Sodium Cancelled, Potassium Cancelled, Chloride Cancelled, Carbon Dioxide Cancelled, Anion Gap Cancelled, BUN Cancelled, Creatinine Cancelled, Estim Creat Clear Calc Cancelled, Est GFR (MDRD) Af Amer Cancelled, Est GFR (MDRD) Non-Af Cancelled, BUN/Creatinine Ratio Cancelled, Glucose Cancelled, Calcium Cancelled, Total Bilirubin Cancelled, AST Cancelled, ALT Cancelled, Alkaline Phosphatase Cancelled, Troponin I High Sens Cancelled, Total Protein Cancelled, Albumin Cancelled, Globulin Cancelled, Albumin/Globulin Ratio Cancelled 04/02/21 23:20: Lactic Acid Cancelled Micro: Microbiology 04/02/21 00:00 Nasal Secretion SARS-CoV-2 Antigen (Rapid) - Final Assessment & Plan Assessment/Plan (1) Acute febrile illness: (2) Septic shock: (3) Acute dehydration: (4) DEEPIKA (acute kidney injury): (5) Hypernatremia: (6) Hypokalemia: (7) NSTEMI, initial episode of care: (8) Coagulopathy: (9) Acute respiratory failure with hypoxia: (10) Stage I pressure ulcer of sacral region: PLAN: Septic shock -Patient with fever, acute respiratory failure, hypotension, mental status change, hypercapnia, DEEPIKA -Shockingly his lactate was normal on admission but patient requiring pressors -Etiology is unclear at this time -30 cc/kg fluid boluses given -Continue Levophed and wean as able -Contain map 65 or greater -Pancultures pending -Check strep pneumo and Legionella antigens -Vancomycin and Zosyn -Check MRSA PCR -If patient remains febrile we may need a cooling blanket -Consult critical care medicine Acute hypoxic and hypercapnic respiratory failure -Etiology unclear -Suspect some of this is related to mental status/+-pneumonia -Rapid Covid is negative -Check PCR Covid -Work-up as above -Urine nebulizers -CTA is negative for acute PE -Patient does have history of tobacco abuse remotely -Continue mechanical ventilation -Consult pulmonary medicine/CCM NSTEMI -start asa 81 mg -EKG shows inferior lateral ST depression -Could be demand ischemia -Check lipids -Patient with persistent hypotension -Check echocardiogram -Cycle cardiac enzymes -Start heparin drip if fibrinogen is normal -Consult cardiology although patient is not a candidate for any invasive procedures at this time Head CT abnormality -Suggestive of ischemia versus hypoxia -We will check MRI of brain -Patient is currently not requiring any sedation Metabolic/toxic encephalopathy--> suspect multifactorial -Mental status may be due to decreased clearance of psych medication/gabapentin -Hold home meds at this time -MRI of brain given abnormal CT findings -Monitor clinically DEEPIKA -Suspect this is related to acute dehydration with reviewing all labs -IV fluids as above -We will run normal saline at 75 cc/h after boluses have been completed -Avoid nephrotoxins -Hold home gabapentin -Repeat lab in a.m. -Avoid nephrotoxins -If not improved would consider further work-up Coagulopathy -Per discussion with son the patient does have a history of severe alcoholism remotely -But drinking in 2007 -FSP and D-dimer are pending to rule out DIC although platelet count is normal -Check right upper quadrant ultrasound for signs of cirrhosis -We will dose 10 mg IV vitamin K x1 in case malnutrition is playing into this as well -Repeat coags in a.m. Hypernatremia/hyperchloremia -Likely related to acute dehydration -IV fluids -Repeat lab in a.m. -Need to adjust fluids depending on shifts Stage I left-sided sacral pressure ulcer -No signs of infection -Is near her rectum and at risk for contamination -Consult wound care nurse Hypokalemia -P.o. liquid potassium replacement via G-tube -Repeat lab in a.m. History of alcoholism -Quit in 2007 History of tobacco abuse -Quit in 2014 Hyperlipidemia -Hold statin at this time as there is a question whether he is on this at baseline Debility -Consult PT/OT Bipolar type I/schizophrenia -Hold home medications at this time -If mental status improves would consider reinitiating them DVT prophylaxis -We will be initiating heparin drip if FSP is normal -SCDs CODE STATUS -DNR CCA no CPR but okay for intubation per discussion with the son in the emergency department Charges/Coding Visit Charges Inpatient E&M: 18140 Init Hosp L3
[2021-04-03] MEDS: Acetaminophen 650 MG/20 ML UDC 1000 MG NG (01:02)
[2021-04-03 01:15] LABS: International Normalized Ratio 2.4; Prothrombin Time (Protime)PT. 25.4 SECONDS (11.7-14.9)
[2021-04-03 01:16] LABS: Partial Thromboplast Time 46.3 Seconds (24.1-36.2)
[2021-04-03 01:19] LABS: Coarse Granular Cast 10-25 SEEN /lpf (0-5 /lpf); White Blood Cells 10-25 SEEN /hpf (0-5)
[2021-04-03 01:20] LABS: Bacteria 3+ /hpf (None Seen); Hyaline Cast 0-5 SEEN /lpf (0-5); Red Blood Cells-Urine > 100 SEEN /hpf (0-5); Renal Epithelial Cells 10-25 SEEN /hpf (0-5)
[2021-04-03 01:21] LABS: Amorphous Sediment 1+; Squamous Epithelial Cells - UA 0-5 SEEN /hpf (0-5)
[2021-04-03 01:34] LABS: ALB/GLOB Ratio 0.4 RATIO (0.9-2.4); AST(SGOT) 85 U/L (15-37); Alanine Aminotransfer ALT/SGPT 31 U/L (16-61); Albumin, Serum 1.8 g/dL (3.2-5.0); Alkaline Phosphatase 46 U/L (45-117); Anion Gap 11 (5-15); BUN 70 mg/dL (7-18); BUN/Creat Ratio 31.4 RATIO (10-20); Chloride 117 mmol/L (98-107); Creatinine, Serum 2.23 mg/dL (0.70-1.30); EST Glomerular Filtration Rate 32 mL/min (>60); Est Glom Filt Rate - Afr Amer 39 mL/min (>60); Estimated Creatinine Clearance 33.03 ml/min; Globulin 4.5 g/dL (2.2-4.2); Glucose 124 mg/dL (74-106); Protein, Total 6.3 g/dL (6.4-8.2); Sodium Level 151 mmol/L (136-145); Troponin-I HS 1312 pg/mL (3.0-78.0)
--- NOTE | 2021-04-03 01:52 | RAD_ITS ---
STUDY: X-RAY CHEST REASON FOR EXAM: Male, 61 years old. Line placement TECHNIQUE: Single AP portable view of the chest. COMPARISON: 04/03/2021 chest x-ray FINDINGS: There is a left-sided subclavian line placed the tip is in spur vena cava. An endotracheal tube is present the tip is 4.8 cm above the nabeel. An NG tube is present the tip is in the stomach. There are bilateral patchy lower lobe opacities. There is no demonstrated pleural abnormality. Normal size heart. Normal mediastinum and marcus. Normal visualized pulmonary arteries. Normal visualized aortic arch and descending thoracic aorta. There are diffuse degenerative changes of the visualized thoracic spine. Normal visualized ribs, clavicles, and shoulders. There is no demonstrated abnormality of the visualized soft tissue structures of the upper abdomen. RAD/CXR for Line Placement IMPRESSION: Left-sided central line in satisfactory position. Endotracheal tube and NG tube in satisfactory position Bilateral lower lobe pneumonia. Electronically Signed: Antonina Barron MD at 2:40 EST Tel , Service support ,
--- NOTE | 2021-04-03 02:18 | ECHOD_ITS ---
Reason For Study: NSTEMI Procedure This was a 2D Doppler, Color Flow transthoracic echocardiogram. Exam performed portable in ICU/CCU. The exam was abbreviated due to the COVID 19 protocol. Left Ventricle Normal LV size. Left ventricular systolic function is lower limits of normal. The estimated ejection fraction is 55 %. Right Ventricle Normal RV size. Normal systolic function. Atria Normal left atrium. Normal right atrium. Tricuspid Valve Normal tricuspid valve. Mild (1+) tricuspid valve insufficiency. Pulmonary artery systolic pressure is 33 mmHg. Pericardium/Pleural Small pericardial effusion. There are no echocardiographic indications of cardiac tamponade. MMode/2D Measurements & Calculations LVIDd: 3.9 cm IVSd: 0.94 cm LVIDs: 3.3 cm LVPWd: 1.1 cm FS: 15.8 % Doppler Measurements & Calculations TR max mayte: 269.1 cm/sec TR max P.0 mmHg ECHO/Echo Complete Interpretation Summary Normal LV size. Left ventricular systolic function is lower limits of normal. The estimated ejection fraction is 55 %. Small pericardial effusion. Pulmonary artery systolic pressure is 33 mmHg. Ordering Physician: Yenifer Treadwell Referring Physician: Kvng Leyva Performed By: Queta Chambers RDCS, RVT
[2021-04-03 02:19] LABS: Fibrinogen > 900 mg/dl (203-444)
[2021-04-03 02:35] LABS: Allen Test Positive; Base Excess -4 mmol/L (-2 to +2); Bicarbonate 22.9 mmol/L (22-26); Blood Gas Specimen Type ART; FI02 100; Mode AC; O2 Delivery Device Adult Vent; PEEP 12; PO2 81 mmHG (75-100); RR 20; SITE R Radial; SO2 94 % (95-99); Total Carbon Dioxide 24 mmol/L; Vt 475; pCO2 48.6 mmHg (35-45); pH 7.28 (7.35-7.45)
--- NOTE | 2021-04-03 02:57 | ED.RN ---
Report called back to [facility] for admission.
--- NOTE | 2021-04-03 03:00 | ED.RN ---
PLEASE CALL CHETAN SOLO III AT [phone] FOR ANY QUESTIONS, UPDATES.
[2021-04-03 03:05] LABS: D-Dimer Quantitative (DVT/PE) 2.98 FEU/ug/m (0.27-0.49)
--- NOTE | 2021-04-03 03:39 | MRI_ITS ---
STUDY: MRI BRAIN WITHOUT CONTRAST REASON FOR EXAM: Male, 61 years old. stroke, AMS, abn ct brain TECHNIQUE: Standardized multiplanar fat and water weighted pulse sequences were obtained. COMPARISON: CT scan of the head obtained the same day. FINDINGS: No evidence of restricted diffusion, the ADC map is unremarkable. No evidence of signal dropout on the gradient echo sequence. Normal size of the ventricles and extra-axial spaces for the patient''s age. Normal white matter tracts of the supratentorial brain. Normal bilateral basal ganglia. Normal thalami. There is no extra-axial fluid accumulation. Normal flow voids within the major intracranial circulation suggesting patency by spin echo criteria. Normal sella turcica, pituitary gland, infundibular stalk, optic chiasm and hypothalamus. Normal tectal plate and pineal gland. Normal midbrain, vikas and medulla. Normal cerebellum. Normal basal cisterns. Normal bilateral temporal bones. Normal bilateral internal auditory canals. No demonstrated orbital abnormality, within the constraints of a routine brain study. Mild circumferential mucosal thickening visualized in the paranasal sinuses. Normal calvarium and skull base. Normal visualized soft tissue structures. Normal visualized upper cervical spine. MRI/Brain without Contrast IMPRESSION: Normal unenhanced MRI of the brain. Electronically Signed: Mustapha Miller MD at 11:18 EST Tel , Service support ,
--- NOTE | 2021-04-03 03:39 | US_ITS ---
STUDY: ABDOMINAL ULTRASOUND - RIGHT UPPER QUADRANT REASON FOR VISIT: Male, 61 years old cirrhosis TECHNIQUE: Ultrasound evaluation of the right upper quadrant was performed with real-time and static tobin-scale imaging. TECHNICAL QUALITY: Adequate. COMPARISON: None. FINDINGS: Liver: The liver measures 15 cm. There is increased, coarsened echogenicity of the liver. The bile ducts are slightly dilated. There is hepatic color flow. The direction of portal flow is hepatopetal. There is no demonstrated mass lesion. Gallbladder: The gallbladder wall measures 2.8 mm. There is a negative sonographic Noel''s sign. There is no pericholecystic fluid. Gallbladder sludge and cholelithiasis. Common Bile Duct (C.B.D.): The common bile duct measures 4.0 mm. Pancreas: There is no demonstrated pancreatic mass or cyst. Right Kidney: Normal size of the right kidney. There is no demonstrated renal mass or cyst. There is no right hydronephrosis. US/Abdomen Limited IMPRESSION: 1. Cholelithiasis with slight intrahepatic bile duct dilation although common duct normal in caliber. Electronically Signed: Joaquín Winkler MD ([place]) at 10:49 EST , Service support ,
[2021-04-03] MEDS: Heparin Injection (Vial) 5,000 UNIT/ML VIAL 4500 UNIT IV (03:58)
[2021-04-03 04:17] LABS: Absolute Lymphocyte Count 0.64 X10^3/uL (0.83-4.51); Absolute Neutrophil Count 8.1 X10^3/uL (2.0-7.7); Basophil# 0.01 X10^3/uL; Basophil% 0.1 % (0-1); Hematocrit 38.5 % (40-54); Hemoglobin 12.2 g/dL (13.0-16.5); Lymphocyte # 0.64 X10^3/ul (0.83-4.51); Lymphocyte % 6.8 % (19-41); Mean Corp Hgb Conc 31.7 g/dL (32-36); Mean Corpuscular Hgb 29.7 pg (27.0-32.0); Mean Corpuscular Volume 93.7 fL (80-94); Mean Platelet Vol. 10.8 fl (6.2-12.0); Monocyte# 0.55 X10^3/uL; Monocyte% 5.9 % (0-10); NRBC Flagged by Analyzer 0 % (0-5); Neutrophil # 8.09 X10^3/uL (2.7-7.7); Neutrophil % 86.5 % (47-70); Platelet Count 159 K/mm3 (150-450); RBC Distribution Width CV 14.1 % (11.6-14.6); RBC Distribution Width SD 48.5 fl (35.1-43.9); Red Blood Count 4.11 M/mm3 (4.6-6.2); White Blood Count 9.4 K/mm3 (4.4-11.0)
[2021-04-03 04:45] LABS: Cholesterol 79 mg/dL (200); High Density Lipoprotein 17 mg/dL; Triglycerides 140 mg/dL; Very Low Density Lipoprotein 28 mg/dL (5-40)
[2021-04-03] MEDS: Vancomycin IV 1,000 MG/200 ML BAG 200 MG IV (05:13)
[2021-04-03] MEDS: Potassium Chloride Oral Soln 20 MEQ/15 ML UDC 40 MEQ PO (05:14)
[2021-04-03 05:15] LABS: Base Excess -4 mmol/L (-2 to +2); Bicarbonate 23.8 mmol/L (22-26); Blood Gas Specimen Type ART; FI02 100; Mode AC; O2 Delivery Device Adult Vent; PEEP 12; PO2 137 mmHG (75-100); RR 18; SITE R Radial; SO2 99 % (95-99); Total Carbon Dioxide 26 mmol/L; Vt 450; pCO2 56.1 mmHg (35-45); pH 7.24 (7.35-7.45)
[2021-04-03 05:20] LABS: ALB/GLOB Ratio 0.4 RATIO (0.9-2.4); AST(SGOT) 85 U/L (15-37); Alanine Aminotransfer ALT/SGPT 38 U/L (16-61); Albumin, Serum 2.2 g/dL (3.2-5.0); Alkaline Phosphatase 54 U/L (45-117); Anion Gap 13 (5-15); BUN 66 mg/dL (7-18); BUN/Creat Ratio 27.5 RATIO (10-20); Calcium,Total 8.1 mg/dL (8.5-10.1); Chloride 117 mmol/L (98-107); EST Glomerular Filtration Rate 29 mL/min (>60); Est Glom Filt Rate - Afr Amer 35 mL/min (>60); Estimated Creatinine Clearance 31.15 ml/min; Globulin 4.9 g/dL (2.2-4.2); Glucose 147 mg/dL (74-106); Magnesium 2.7 mg/dL (1.6-2.6); Phosphorus 7.7 mg/dL (2.5-4.9); Potassium 2.5 mmol/L (3.5-5.1); Protein, Total 7.1 g/dL (6.4-8.2); Sodium Level 153 mmol/L (136-145); Thyroid Stim Hormone (TSH) 0.34 uIU/mL (0.358-3.74)
[2021-04-03] MEDS: 0.9% Normal Saline 1,000 ML 75 ML IV (06:00)
--- NOTE | 2021-04-03 06:05 | PCM.RX.CS ---
Consult Pharmacy has been consulted to manage selected antiobiotic: Vancomycin Type of Consult: New start Suspected Infection: Sepsis Prior Doses of Antibiotics Received/Current Regimen: Medications Vancomycin HCl (Vancomycin) 1,000 mg in 200 mls @ 200 mls/hr IV Q24H ZEKE Discontinued Medications Vancomycin HCl (Vancomycin) 1,000 mg in 200 mls @ 200 mls/hr 15 mg/kg (1000 mg) IV X1 ONE Stop: 04/03/21 02:53 Last Admin: 04/03/21 05:13 Dose: 200 mls/hr Documented by: Labs: Sodium 153 mmol/L (136-145) H 04/03/21 04:10 Potassium 2.5 mmol/L (3.5-5.1) L* 04/03/21 04:10 Chloride 117 mmol/L (98-107) H 04/03/21 04:10 Carbon Dioxide 23.0 mmol/L (21.0-32.0) 04/03/21 04:10 Anion Gap 13 (5-15) 04/03/21 04:10 BUN 66 mg/dL (7-18) H 04/03/21 04:10 Creatinine 2.40 mg/dL (0.70-1.30) H 04/03/21 04:10 Est GFR (MDRD) Af Amer 35 mL/min (>60) L 04/03/21 04:10 Est GFR (MDRD) Non-Af 29 mL/min (>60) L 04/03/21 04:10 BUN/Creatinine Ratio 27.5 RATIO (10-20) H 04/03/21 04:10 Glucose 147 mg/dL (74-106) H 04/03/21 04:10 Microbiology: Microbiology 04/03/21 03:45 Urine Catheter - Dixon Legionella Antigen - Final 04/03/21 03:45 Urine Catheter - Dixon Streptococcus pneumoniae Antigen (M - Final 04/02/21 00:00 Nasal Secretion SARS-CoV-2 Antigen (Rapid) - Final Weight used for dosin kg Estimated Creatinine Clearance: 31 Goal Trough: 15-20 mcg/mL Pharmacy Plan for Drug Dosing: Pharmacy Service will continue to monitor and adjust dosing as required. Follow-Up Labs: Trough Vancomycin Labs to be done on [date and time ordered]: 04/05/21 @2880
[2021-04-03 07:38] LABS: Troponin-I HS 1340 pg/mL (3.0-78.0)
--- NOTE | 2021-04-03 08:40 | CON.PCM.CC_ITS ---
Assessment & Plan Assessment/Plan (1) Acute respiratory failure with hypoxia: (2) Septic shock: PLAN: RECOMMENDATIONS: 1. Continue broad-spectrum antimicrobials. 2. Wean FiO2/PEEP for saturations greater than 90%. 3. Repeat comprehensive metabolic profile and ammonia. 4. Obtain EEG. 5. Start D5W. 6. Aggressive electrolyte repletion. 7. Continue to avoid sedating medications. 8. Start appropriate GI prophylaxis. IMPRESSIONS: 1. Acute combined respiratory failure The patient was emergently intubated in the ED after being found unresponsive at his assisted facility. The exact etiology for his acute decompensation is not clear. Regardless, CTA showed no evidence for PE, but did demonstrate multifocal airspace disease consistent with pneumonia. The patient will be continued on assist control mode of mechanical ventilation. FiO2 and PEEP will be weaned for saturations greater than 90%. Continue broad-spectrum antimicrobials, while awaiting infectious work-up. 2. Encephalopathy Unclear etiology. Initial head CT demonstrated findings which could have represented possible hypoxic event or infarct. Therefore, MRI brain was obtained but was found to be normal. Underlying metabolic derangements were also likely contributing. Plan to recheck a comprehensive metabolic profile along with ammonia level. In addition, given that his MRI brain was unremarkable, will obtain EEG to evaluate for nonconvulsive status. 3. Septic shock Likely secondary to underlying pulmonary infectious etiology. Rapid coronavirus and PCR testing was negative. Accordingly, the patient will be continued on broad-spectrum antimicrobials, while awaiting finalized infectious work-up. Continue Levophed to maintain a mean arterial pressure at or above 65 mmHg. 4. Hypernatremia/hyperchloremia/hypokalemia Start D5W, given rising sodium and chloride levels. Continue aggressive electrolyte repletion. 5. Acute kidney injury Likely prerenal in etiology and related to acute presentation in the setting of #3. Anticipate recovery with stabilization of hemodynamics. Continue current supportive measures. No current indication for renal replacement therapy. 6. Troponin elevation Most likely secondary to demand ischemia in the setting of the above. Cardiology has been consulted to evaluate the patient. Echocardiogram was largely unrevealing. Continue heparin infusion for now. 7. History of alcoholism in remission/history of tobacco dependency in remission/hyperlipidemia/bipolar/schizophrenia Complicates care, management, recovery and prognosis. Continue supportive measures as noted above. TIME: 43 minutes of critical care time, independent of procedures, was spent addressing the patient's acute combined respiratory failure, encephalopathy, septic shock, hypernatremia, acute kidney injury, NSTEMI, review of all data and collaboration with the care team. HPI Consult Data Date of Consult: 04/03/21 HPI Narrative Reason for Consultation: Encephalopathy, respiratory failure HPI Narrative: The patient is a 61-year-old male, with a history as outlined below, who presented to the emergency department via EMS on April 02 after he was found unresponsive at his assisted facility. He was last known to be well 24 hours previous. He was apparently noted to be febrile with a temperature of 104 ?F. According to documentation, the patient is residing at a nursing facility that is currently suffering from an outbreak of COVID-19. On presentation to the emergency department, the patient was noted to be febrile with a temperature of 102.3 ?F. He was notably tachycardic and tachypneic. Initial laboratory evaluation demonstrated no evidence of a leukocytosis. Coagulation profile was notable for an elevated PT, PTT, fibrinogen and D-dimer. Chemistry profile was notable for a sodium of 151, potassium of 3.0, chloride of 117, BUN of 70 and creatinine of 2.23. Glucose was within normal limits. Lactate was within normal limits. Troponin was elevated at 1312. Rapid coronavirus antigen testing was negative. Coronavirus PCR was negative. CTA chest showed no evidence for pulmonary embolism. Multifocal airspace disease was noted. CT head revealed asymmetric appearance of the CSF spaces which could represent a sign of potential edema. Due to the patient's impending respiratory failure, he was emergently intubated in the emergency department. In addition, the patient became hypotensive which was refractory to fluid resuscitation. Therefore, central venous catheter was placed and the patient was initiated on Levophed. Antimicrobials were initiated and the patient was transferred to the medical intensive care unit for further management. [facility] Medical History Alcoholism in recovery Bipolar 1 disorder Debility History of tobacco abuse Hyperlipemia Reduced mobility Schizophrenia Home Medications atorvastatin 40 mg PO QHS 04/02/21 [History Last Taken Unknown] benztropine 1 mg PO Q12H PRN PRN 04/02/21 [History Last Taken Unknown] gabapentin 300 mg PO TID 04/02/21 [History Last Taken Unknown] levofloxacin [Levaquin] 500 mg PO DAILY 04/02/21 [History Last Taken Unknown] risperidone 0.5 mg PO QHS 04/02/21 [History Last Taken Unknown] risperidone 4 mg PO QHS 04/02/21 [History Last Taken Unknown] sertraline 100 mg PO BID 04/02/21 [History Last Taken Unknown] topiramate 150 mg PO QHS 04/02/21 [History Last Taken Unknown] Allergy/AdvReac Type Severity Reaction Status Date / Time No Known Allergies Allergy Verified 04/02/21 23:16 Social History (Updated 04/03/21 @ 02:[address] Yenifer Treadwell, DO) Smoking Status: Former smoker alcohol intake: former details: Was a heavy drinker up until 2007 substance use type: does not use ROS Review of Systems ROS Unobtainable: due to endotracheal tube and due to mental condition Physical Exam Const no apparent distress General Appearance: intubated and patient mechanically ventilated HEENT normocephalic and head/scalp atraumatic Mouth: endotracheal tube in place and OG tube in place Eyes conjunctivae normal Pupil: sluggish Neck supple General: trachea midline and CVC in place Chest inspection of chest normal Resp Auscultation: diminished lung sounds; Negative for rales, rhonchi or wheezes Cardio regular rate and regular rhythm GI normal to inspection, nondistended, normoactive bowel sounds Extremity no clubbing, cyanosis or edema Skin no rashes or lesions noted Neuro Neuro Narrative: The patient is not currently on any sedation. He is nonresponsive to tactile and painful stimulation. +Gag with sluggish pupillary reflex. Lab / Micro Data Result Diagrams: 04/03/21 04:10 04/03/21 04:10 Labs: Laboratory Results - last 24 hr 04/02/21 23:20: WBC 8.4, RBC 5.15, Hgb 15.4, Hct 46.4, MCV 90.1, MCH 29.9, MCHC 33.2, RDW Std Deviation 46.4 H, RDW Coeff of Sandra 14.1, Plt Count 212, MPV 12.5 H , Immature Gran % (Auto) 0.400, Neut % (Auto) 90.5 H, Lymph % (Auto) 5.7 L, Parmer % (Auto) 3.3, Eos % (Auto) 0.0, Baso % (Auto) 0.1, Absolute Neuts (auto) 7.6, Absolute Lymphs (auto) 0.48 L, Nucleated RBC % 0 04/02/21 23:20: PT 25.4 H, INR 2.4, APTT 46.3 H 04/02/21 23:20: Sodium Cancelled, Potassium Cancelled, Chloride Cancelled, Carbon Dioxide Cancelled, Anion Gap Cancelled, BUN Cancelled, Creatinine Cancelled, Estim Creat Clear Calc Cancelled, Est GFR (MDRD) Af Amer Cancelled, Est GFR (MDRD) Non-Af Cancelled, BUN/Creatinine Ratio Cancelled, Glucose Cancelled, Calcium Cancelled, Total Bilirubin Cancelled, AST Cancelled, ALT Cancelled, Alkaline Phosphatase Cancelled, Troponin I High Sens Cancelled, Total Protein Cancelled, Albumin Cancelled, Globulin Cancelled, Albumin/Globulin Ratio Cancelled 04/02/21 23:20: Lactic Acid Cancelled 04/02/21 23:20: Fibrinogen > 900 H, D-Dimer Quant (PE/DVT) 2.98 H* 04/03/21 00:10: Urine Color Red, Urine Clarity Turbid, Urine pH 5.0, Ur Specific Hayes 1.025, Urine Protein 500 H, Urine Glucose (UA) Normal, Urine Ketones 5 H , Urine Occult Blood 250 H, Urine Nitrite Negative, Urine Bilirubin Negative, Urine Urobilinogen 1 H, Ur Leukocyte Esterase Negative, Urine RBC > 100 SEEN, Urine WBC 10-25 SEEN, Ur Squamous Epith Cells 0-5 SEEN, Ur Renal Epithelial Cell 10-25 SEEN, Amorphous Sediment 1+, Urine Bacteria 3+, Hyaline Casts 0-5 SEEN, Coarse Granular Casts 10-25 SEEN, Urine Mucus 0 SEEN 04/03/21 00:55: Lactic Acid 1.0 04/03/21 00:55: Sodium 151 H, Potassium 3.0 L, Chloride 117 H, Carbon Dioxide 23.0, Anion Gap 11, BUN 70 H, Creatinine 2.23 H, Estim Creat Clear Calc 33.03, Est GFR (MDRD) Af Amer 39 L, Est GFR (MDRD) Non-Af 32 L, BUN/Creatinine Ratio 31.4 H, Glucose 124 H, Calcium 8.0 L, Total Bilirubin 0.80, AST 85 H, ALT 31, Alkaline Phosphatase 46, Troponin I High Sens 1312 H*, Total Protein 6.3 L, Albumin 1.8 L, Globulin 4.5 H, Albumin/Globulin Ratio 0.4 L 04/03/21 02:03: COVID-19 (BEBETO) Not Detected 04/03/21 02:15: Blood Type A POSITIVE, Antibody Screen NEGATIVE 04/03/21 04:10: Triglycerides 140, Cholesterol 79, LDL Cholesterol 34, VLDL Cholesterol 28, HDL Cholesterol 17 L 04/03/21 04:10: WBC 9.4, RBC 4.11 L, Hgb 12.2 L, Hct 38.5 L, MCV 93.7, MCH 29.7, MCHC 31.7 L, RDW Std Deviation 48.5 H, RDW Coeff of Sandra 14.1, Plt Count 159, MPV 10.8, Immature Gran % (Auto) 0.700, Neut % (Auto) 86.5 H, Lymph % (Auto) 6.8 L, Parmer % (Auto) 5.9, Eos % (Auto) 0.0, Baso % (Auto) 0.1, Absolute Neuts (auto) 8.1 H, Absolute Lymphs (auto) 0.64 L, Nucleated RBC % 0 04/03/21 04:10: Sodium 153 H, Potassium 2.5 L*, Chloride 117 H, Carbon Dioxide 23.0, Anion Gap 13, BUN 66 H, Creatinine 2.40 H, Estim Creat Clear Calc 31.15, Est GFR (MDRD) Af Amer 35 L, Est GFR (MDRD) Non-Af 29 L, BUN/Creatinine Ratio 27.5 H, Glucose 147 H, Calcium 8.1 L, Phosphorus 7.7 H, Magnesium 2.7 H, Total Bilirubin 0.90, AST 85 H, ALT 38, Alkaline Phosphatase 54, Total Protein 7.1, Albumin 2.2 L, Globulin 4.9 H, Albumin/Globulin Ratio 0.4 L, TSH 0.34 L 04/03/21 04:10: Troponin I High Sens 1340 H* Micro: Microbiology 04/03/21 03:45 Urine Catheter - Dixon Legionella Antigen - Final 04/03/21 03:45 Urine Catheter - Dixon Streptococcus pneumoniae Antigen (M - Final 04/02/21 00:00 Nasal Secretion SARS-CoV-2 Antigen (Rapid) - Final ABG Data ABG results: ABG 04/03/21 04/03/21 02:29 05:10 Specimen Type ART ART Sample Site R Radial R Radial pH 7.28 L 7.24 L Bicarbonate Actual 22.9 23.8 Total CO2 24 26 Base Excess -4 L -4 L O2 Saturation 94 L 99 O2 % 100 100 ABG pCO2 48.6 H 56.1 H ABG pO2 81 137 H Roly Test Positive N/A Respiration Rate 20 18 O2 Delivery Device Adult Vent Adult Vent Vent Mode AC AC Tidal Volume 475 450 POC PEEP 12 12 Radiology Impression Chest X-Ray 04/03/21 00:14 IMPRESSION: Bilateral lower lobe pneumonia. NG tube tip in the stomach. Endotracheal tube 3.0 cm above the nabeel. Electronically Signed: Antonina Barron MD at 1:58 EST Tel , Service support , Chest CTA 04/03/21 00:30 IMPRESSION: No demonstrated pulmonary embolism or arterial dissection. Bilateral lower lobe consolidation consistent with pneumonia. In this setting consider aspiration pneumonia. Covid virus thought to be less likely. Coronary artery calcification trace pericardial effusion. Lines as detailed above. Electronically Signed: Antonina Barron MD at 1:56 EST Tel , Service support , Chest X-Ray 04/03/21 01:52 IMPRESSION: Left-sided central line in satisfactory position. Endotracheal tube and NG tube in satisfactory position Bilateral lower lobe pneumonia. Electronically Signed: Antonina Barron MD at 2:40 EST Tel , Service support , Brain CT 04/03/21 23:49 IMPRESSION: Asymmetric appearance of the CSF spaces may represent a secondary or indirect sign of edema in the right hemisphere which could be associated with injury possible hypoxic event or infarct. When appropriate recommend consideration for follow-up MRI. No visualized acute hemorrhage. The patient''s NG tube is coiled in the oropharynx. This should be repositioned. Electronically Signed: Antonina Barron MD at 1:43 EST Tel , Service support , ADDENDUM: 04/03/21 0159 IMPRESSION: Asymmetric appearance of the CSF spaces may represent a secondary or indirect sign of edema in the right hemisphere which could be associated with injury possible hypoxic event or infarct. When appropriate recommend consideration for follow-up MRI. No visualized acute hemorrhage. The patient''s NG tube is coiled in the oropharynx. This should be repositioned. N.B. : The above Results were Read Back by Antonina Barron MD to Dr. Dee MD, and understanding confirmed on 04/03/2021 01:52:37 (ET). Electronically Signed: Antonina Barron MD at 1:43 EST Tel , Service support , Charges/Coding Procedures Hospitalists Procedures: [id number] Critial Care 1st Hr
[2021-04-03 08:56] LABS: Allen Test Positive; Base Excess -6 mmol/L (-2 to +2); Bicarbonate 20.7 mmol/L (22-26); Blood Gas Specimen Type ART; FI02 80; Mode AC; O2 Delivery Device Adult Vent; PEEP 12; PO2 91 mmHG (75-100); RR 18; SITE R Radial; SO2 96 % (95-99); Total Carbon Dioxide 22 mmol/L; Vt 500; pCO2 43.4 mmHg (35-45); pH 7.29 (7.35-7.45)
--- NOTE | 2021-04-03 10:51 | WOUNDNOTE ---
Pt is currently off unit for testing.
[2021-04-03] MEDS: Potassium Chloride Oral Soln 20 MEQ/15 ML UDC 40 MEQ GT (11:02)
[2021-04-03] MEDS: Potassium Chloride 10mEq/100mL 10 MEQ/100 ML IV.SOLN. 100 MEQ IV BOLUS ×4 (11:03→14:17)
[2021-04-03] MEDS: Aspirin 81 MG TAB.CHEW GT (11:07)
[2021-04-03 12:02] LABS: Troponin-I HS 632 pg/mL (3.0-78.0)
[2021-04-03 12:15] LABS: International Normalized Ratio 1.5; Prothrombin Time (Protime)PT. 17.7 SECONDS (11.7-14.9)
[2021-04-03 12:34] LABS: Partial Thromboplast Time > 250.0 Seconds (24.1-36.2)
--- NOTE | 2021-04-03 13:24 | RAD_ITS ---
STUDY: X-RAY CHEST REASON FOR EXAM: Male, 61 years old. CHEST PAIN Endotracheal tube exchange, verify placement TECHNIQUE: XR Chest 1 View COMPARISON: Study done earlier today. FINDINGS: There is no demonstrated pleural abnormality. There is a left lower lobe infiltrate. There is an NGT and ET tube in place. There is no pneumothorax. There is a left vascular line. Normal size heart. Normal mediastinum and marcus. Normal visualized pulmonary arteries. There is atherosclerotic calcification of the aortic arch with tortuosity. There are diffuse degenerative changes of the visualized thoracic spine. Normal visualized ribs, clavicles, and shoulders. There is no demonstrated abnormality of the visualized soft tissue structures of the upper abdomen. RAD/Chest 1 View (Portable) IMPRESSION: There is a left lower lobe infiltrate. Electronically Signed: Anthony Watkins MD at 14:27 EST , Service support ,
--- NOTE | 2021-04-03 13:28 | CPS ---
Had to exchange ET tube 7.5 due to leaking cuff.
[2021-04-03 15:18] LABS: M R Staph aureus DNA By PCR Negative (Negative); Probe Check PASS; Specimen Processing Control PASS
--- NOTE | 2021-04-03 15:23 | TELEMED_ITS ---
[facility] has confirmed receipt of a request for visit. This document confirms receipt of the order initiating the consult. To find the results of the consultation, please view the patient's reports for the scanned Telemed Consult.
--- NOTE | 2021-04-03 18:18 | PCM.CONS.C ---
Assessment & Plan Assessment/Plan (1) NSTEMI, initial episode of care: PLAN: He does appear to have a non-ST elevation myocardial infarction. The etiology of the above is unclear. At this particular time due to his neurological status my plan is to continue expectant management. His echocardiogram demonstrated preserved left ventricular systolic function and the plan is to continue him on the same therapy. Depending on his clinical course further recommendations will be made. (2) Acute respiratory failure with hypoxia: PLAN: He does have evidence of acute hypoxic respiratory failure. Treatment would be as per ICU management. Thank you for allowing me to participate in the care of your patient. Please don't hesitate to call if any issues arise. HPI Consult Data Date of Consult: 04/03/21 HPI Narrative HPI Narrative: RICKY ZIEGLER, is a 61 M who [facility] secondary to altered level of consciousness. Was apparently found in the half-way facility. No apparent history is available. He was brought to the emergency room where he was noted to be markedly febrile tachycardic hypotensive tachypneic and was put on mechanical ventilation. He also had significant derangements of his blood work. He was noted to have low potassium, elevated glucose, markedly elevated BUN and creatinine. He was also noted to have markedly elevated cardiac enzymes. He was admitted to the intensive care unit and cardiology was called to consult on him due to his abnormal cardiac enzymes. No other history is available. [facility] Medical History Alcoholism in recovery Bipolar 1 disorder Debility History of tobacco abuse Hyperlipemia Reduced mobility Schizophrenia Home Medications atorvastatin 40 mg PO QHS 04/02/21 [History Last Taken Unknown] benztropine 1 mg PO Q12H PRN PRN 04/02/21 [History Last Taken Unknown] gabapentin 300 mg PO TID 04/02/21 [History Last Taken Unknown] levofloxacin [Levaquin] 500 mg PO DAILY 04/02/21 [History Last Taken Unknown] risperidone 0.5 mg PO QHS 04/02/21 [History Last Taken Unknown] risperidone 4 mg PO QHS 04/02/21 [History Last Taken Unknown] sertraline 100 mg PO BID 04/02/21 [History Last Taken Unknown] topiramate 150 mg PO QHS 04/02/21 [History Last Taken Unknown] Allergy/AdvReac Type Severity Reaction Status Date / Time No Known Allergies Allergy Verified 04/02/21 23:16 Social History Smoking Status: Former smoker alcohol intake: former details: Was a heavy drinker up until 2007 substance use type: does not use Physical Exam Const Orientation / Consciousness: comatose HEENT hearing grossly normal bilaterally Head and Scalp: atraumatic Eyes EOMs intact bilaterally Neck General: normal visual inspection Chest inspection of chest normal and palpation of chest normal Resp normal respiratory effort Auscultation: clear to auscultation bilaterally Cardio regular rate, regular rhythm, S1 normal heart sound and S2 normal heart sound Jugular Venous Distention: JVD GI normal to inspection, nondistended, normoactive bowel sounds Extremity normal capillary refill and no pedal edema Peripheral Pulses: Yes pulses 2+ throughout and femoral pulses present Skin no rashes or lesions noted Neuro oriented x3 and CN's II-XII intact bilaterally Psych Appearance: grossly normal and appropriate Risk Stratification Risk Stratification Applicable: No Objective Data Vital Signs: Vital Signs Temp Pulse Resp BP Pulse Ox 100.1 F H 94 25 H 120/89 H 94 04/03/21 17:00 04/03/21 17:00 04/03/21 17:00 04/03/21 17:00 04/03/21 17:00 Oxygen Flow Rate (L/min) 15 Oxygen Delivery Method Mechanical Ventilator Weight: 151 lb 0.266 oz Body Mass Index (BMI) 20.6 Intake & Output: Intake and Output for Last 24 Hours 04/01/21 04/02/21 04/03/21 23:59 23:59 23:59 Intake Total 4548.80 / 4548.80 Output Total 100 / 100 Balance 4448.80 / 4448.80 Lab / Micro Data Result Diagrams: 04/03/21 04:10 04/03/21 04:10 Labs: Laboratory Results - last 24 hr 04/02/21 23:20: WBC 8.4, RBC 5.15, Hgb 15.4, Hct 46.4, MCV 90.1, MCH 29.9, MCHC 33.2, RDW Std Deviation 46.4 H, RDW Coeff of Sandra 14.1, Plt Count 212, MPV 12.5 H, Immature Gran % (Auto) 0.400, Neut % (Auto) 90.5 H, Lymph % (Auto) 5.7 L, [place] % (Auto) 3.3, Eos % (Auto) 0.0, Baso % (Auto) 0.1, Absolute Neuts (auto) 7.6, Absolute Lymphs (auto) 0.48 L, Nucleated RBC % 0 04/02/21 23:20: PT 25.4 H, INR 2.4, APTT 46.3 H 04/02/21 23:20: Sodium Cancelled, Potassium Cancelled, Chloride Cancelled, Carbon Dioxide Cancelled, Anion Gap Cancelled, BUN Cancelled, Creatinine Cancelled, Estim Creat Clear Calc Cancelled, Est GFR (MDRD) Af Amer Cancelled, Est GFR (MDRD) Non-Af Cancelled, BUN/Creatinine Ratio Cancelled, Glucose Cancelled, Calcium Cancelled, Total Bilirubin Cancelled, AST Cancelled, ALT Cancelled, Alkaline Phosphatase Cancelled, Troponin I High Sens Cancelled, Total Protein Cancelled, Albumin Cancelled, Globulin Cancelled, Albumin/Globulin Ratio Cancelled 04/02/21 23:20: Lactic Acid Cancelled 04/02/21 23:20: Fibrinogen > 900 H, D-Dimer Quant (PE/DVT) 2.98 H* 04/03/21 00:10: Urine Color Red, Urine Clarity Turbid, Urine pH 5.0, Ur Specific [place] 1.025, Urine Protein 500 H, Urine Glucose (UA) Normal, Urine Ketones 5 H, Urine Occult Blood 250 H, Urine Nitrite Negative, Urine Bilirubin Negative, Urine Urobilinogen 1 H, Ur Leukocyte Esterase Negative, Urine RBC > 100 SEEN, Urine WBC 10-25 SEEN, Ur Squamous Epith Cells 0-5 SEEN, Ur Renal Epithelial Cell 10-25 SEEN, Amorphous Sediment 1+, Urine Bacteria 3+, Hyaline Casts 0-5 SEEN, Coarse Granular Casts 10-25 SEEN, Urine Mucus 0 SEEN 04/03/21 00:55: Lactic Acid 1.0 04/03/21 00:55: Sodium 151 H, Potassium 3.0 L, Chloride 117 H, Carbon Dioxide 23.0, Anion Gap 11, BUN 70 H, Creatinine 2.23 H, Estim Creat Clear Calc 33.03, Est GFR (MDRD) Af Amer 39 L, Est GFR (MDRD) Non-Af 32 L, BUN/Creatinine Ratio 31.4 H, Glucose 124 H, Calcium 8.0 L, Total Bilirubin 0.80, AST 85 H, ALT 31, Alkaline Phosphatase 46, Troponin I High Sens 1312 H*, Total Protein 6.3 L, Albumin 1.8 L, Globulin 4.5 H, Albumin/Globulin Ratio 0.4 L 04/03/21 02:03: COVID-19 (BEBETO) Not Detected 04/03/21 02:15: Blood Type A POSITIVE, Antibody Screen NEGATIVE 04/03/21 04:10: Triglycerides 140, Cholesterol 79, LDL Cholesterol 34, VLDL Cholesterol 28, HDL Cholesterol 17 L 04/03/21 04:10: WBC 9.4, RBC 4.11 L, Hgb 12.2 L, Hct 38.5 L, MCV 93.7, MCH 29.7, MCHC 31.7 L, RDW Std Deviation 48.5 H, RDW Coeff of Sandra 14.1, Plt Count 159, MPV 10.8, Immature Gran % (Auto) 0.700, Neut % (Auto) 86.5 H, Lymph % (Auto) 6.8 L, [place] % (Auto) 5.9, Eos % (Auto) 0.0, Baso % (Auto) 0.1, Absolute Neuts (auto) 8.1 H, Absolute Lymphs (auto) 0.64 L, Nucleated RBC % 0 04/03/21 04:10: Sodium 153 H, Potassium 2.5 L*, Chloride 117 H, Carbon Dioxide 23.0, Anion Gap 13, BUN 66 H, Creatinine 2.40 H, Estim Creat Clear Calc 31.15, Est GFR (MDRD) Af Amer 35 L, Est GFR (MDRD) Non-Af 29 L, BUN/Creatinine Ratio 27.5 H, Glucose 147 H, Calcium 8.1 L, Phosphorus 7.7 H, Magnesium 2.7 H, Total Bilirubin 0.90, AST 85 H, ALT 38, Alkaline Phosphatase 54, Total Protein 7.1, Albumin 2.2 L, Globulin 4.9 H, Albumin/Globulin Ratio 0.4 L, TSH 0.34 L 04/03/21 04:10: Troponin I High Sens 1340 H* 04/03/21 11:25: PT 17.7 H, INR 1.5 04/03/21 11:25: APTT > 250.0 H* 04/03/21 11:25: Troponin I High Sens 632 H* 04/03/21 11:25: MRSA (PCR) Negative Micro: Microbiology 04/03/21 02:03 Sputum, Tracheal Aspirate Gram Stain - Final 04/03/21 07:50 Mucosa - Nasopharyngeal Rapid RSV (DFA) - Final 04/03/21 07:50 Mucosa - Nasopharyngeal Influenza Types A,B Direct FA (ROSA) - Final 04/03/21 03:45 Urine Catheter - Dixon Legionella Antigen - Final 04/03/21 03:45 Urine Catheter - [place] Streptococcus pneumoniae Antigen (M - Final 04/02/21 00:00 Nasal Secretion SARS-CoV-2 Antigen (Rapid) - Final ABG Data ABG results: ABG 04/03/21 04/03/21 04/03/21 02:29 05:10 08:50 Specimen Type ART ART ART Sample Site R Radial R Radial R Radial pH 7.28 L 7.24 L 7.29 L Bicarbonate Actual 22.9 23.8 20.7 L Total CO2 24 26 22 Base Excess -4 L -4 L -6 L O2 Saturation 94 L 99 96 O2 % 100 100 80 ABG pCO2 48.6 H 56.1 H 43.4 ABG pO2 81 137 H 91 Roly Test Positive N/A Positive Respiration Rate 20 18 18 O2 Delivery Device Adult Vent Adult Vent Adult Vent Vent Mode AC AC AC Tidal Volume 475 450 500 POC PEEP 12 12 12 Cardiology Labs/Tests 04/02/21 23:20: WBC 8.4, RBC 5.15, Hgb 15.4, Hct 46.4, MCV 90.1, MCH 29.9, MCHC 33.2, Plt Count 212, MPV 12.5 H, Immature Gran % (Auto) 0.400, Neut % (Auto) 90.5 H, Lymph % (Auto) 5.7 L, [place] % (Auto) 3.3, Eos % (Auto) 0.0, Baso % (Auto) 0.1, Absolute Neuts (auto) 7.6, Nucleated RBC % 0 04/02/21 23:20: PT 25.4 H, INR 2.4, APTT 46.3 H 04/02/21 23:20: Sodium Cancelled, Potassium Cancelled, Chloride Cancelled, Carbon Dioxide Cancelled, Anion Gap Cancelled, BUN Cancelled, Creatinine Cancelled, Est GFR (MDRD) Af Amer Cancelled, Est GFR (MDRD) Non-Af Cancelled, BUN/Creatinine Ratio Cancelled, Glucose Cancelled, Calcium Cancelled, Total Bilirubin Cancelled 04/02/21 23:20: Lactic Acid Cancelled 04/02/21 23:20: D-Dimer Quant (PE/DVT) 2.98 H* 04/03/21 00:10: Urine Color Red, Urine Clarity Turbid, Urine pH 5.0, Ur Specific [place] 1.025, Urine Protein 500 H, Urine Glucose (UA) Normal, Urine Ketones 5 H, Urine Occult Blood 250 H, Urine Nitrite Negative, Urine Bilirubin Negative, Urine Urobilinogen 1 H, Ur Leukocyte Esterase Negative, Urine RBC > 100 SEEN, Urine WBC 10-25 SEEN 04/03/21 00:55: Lactic Acid 1.0 04/03/21 00:55: Sodium 151 H, Potassium 3.0 L, Chloride 117 H, Carbon Dioxide 23.0, Anion Gap 11, BUN 70 H, Creatinine 2.23 H, Est GFR (MDRD) Af Amer 39 L, Est GFR (MDRD) Non-Af 32 L, BUN/Creatinine Ratio 31.4 H, Glucose 124 H, Calcium 8.0 L, Total Bilirubin 0.80 04/03/21 02:29: pH 7.28 L, Bicarbonate Actual 22.9, Base Excess -4 L, O2 Saturation 94 L, ABG pCO2 48.6 H, ABG pO2 81, Roly Test Positive 04/03/21 04:10: Triglycerides 140, Cholesterol 79, LDL Cholesterol 34, VLDL Cholesterol 28, HDL Cholesterol 17 L 04/03/21 04:10: WBC 9.4, RBC 4.11 L, Hgb 12.2 L, Hct 38.5 L, MCV 93.7, MCH 29.7, MCHC 31.7 L, Plt Count 159, MPV 10.8, Immature Gran % (Auto) 0.700, Neut % (Auto) 86.5 H, Lymph % (Auto) 6.8 L, [place] % (Auto) 5.9, Eos % (Auto) 0.0, Baso % (Auto) 0.1, Absolute Neuts (auto) 8.1 H, Nucleated RBC % 0 04/03/21 04:10: Sodium 153 H, Potassium 2.5 L*, Chloride 117 H, Carbon Dioxide 23.0, Anion Gap 13, BUN 66 H, Creatinine 2.40 H, Est GFR (MDRD) Af Amer 35 L, Est GFR (MDRD) Non-Af 29 L, BUN/Creatinine Ratio 27.5 H, Glucose 147 H, Calcium 8.1 L, Phosphorus 7.7 H, Magnesium 2.7 H, Total Bilirubin 0.90 04/03/21 05:10: pH 7.24 L, Bicarbonate Actual 23.8, Base Excess -4 L, O2 Saturation 99, ABG pCO2 56.1 H, ABG pO2 137 H, Roly Test N/A 04/03/21 08:50: pH 7.29 L, Bicarbonate Actual 20.7 L, Base Excess -6 L, O2 Saturation 96, ABG pCO2 43.4, ABG pO2 91, Roly Test Positive 04/03/21 11:25: PT 17.7 H, INR 1.5 04/03/21 11:25: APTT > 250.0 H* Rhythm: EKG: ECHO: Stress Test: Cardiac Cath: PCI: CT Surgery: Holter monitor: EPS: PPM: CXR: Chest CT Scan: Radiography Diagnostic Testing: Radiology Impression Chest X-Ray 04/03/21 00:14 IMPRESSION: Bilateral lower lobe pneumonia. NG tube tip in the stomach. Endotracheal tube 3.0 cm above the nabeel. Electronically Signed: Antonina Barron MD at 1:58 EST Tel , Service support , Chest CTA 04/03/21 00:30 IMPRESSION: No demonstrated pulmonary embolism or arterial dissection. Bilateral lower lobe consolidation consistent with pneumonia. In this setting consider aspiration pneumonia. Covid virus thought to be less likely. Coronary artery calcification trace pericardial effusion. Lines as detailed above. Electronically Signed: Antonina Barron MD at 1:56 EST Tel , Service support , Chest X-Ray 04/03/21 01:52 IMPRESSION: Left-sided central line in satisfactory position. Endotracheal tube and NG tube in satisfactory position Bilateral lower lobe pneumonia. Electronically Signed: Antonina Barron MD at 2:40 EST Tel , Service support , Echocardiogram 04/03/21 02:18 Interpretation Summary Normal LV size. Left ventricular systolic function is lower limits of normal. The estimated ejection fraction is 55 %. Small pericardial effusion. Pulmonary artery systolic pressure is 33 mmHg. Ordering Physician: Yenifer Treadwell Referring Physician: Kvng Leyva Performed By: Queta Chambers, PANDA, RVT Abdomen Ultrasound 04/03/21 03:39 IMPRESSION: 1. Cholelithiasis with slight intrahepatic bile duct dilation although common duct normal in caliber. Electronically Signed: Joaquín Winkler MD ([place]) at 10:49 EST , Service support , Brain MRI 04/03/21 03:39 IMPRESSION: Normal unenhanced MRI of the brain. Electronically Signed: Mustapha Miller MD at 11:18 EST Tel , Service support , Chest X-Ray 04/03/21 13:24 IMPRESSION: There is a left lower lobe infiltrate. Electronically Signed: Anthony Watkins MD at 14:27 EST , Service support , Brain CT 04/03/21 23:49 IMPRESSION: Asymmetric appearance of the CSF spaces may represent a secondary or indirect sign of edema in the right hemisphere which could be associated with injury possible hypoxic event or infarct. When appropriate recommend consideration for follow-up MRI. No visualized acute hemorrhage. The patient''s NG tube is coiled in the oropharynx. This should be repositioned. Electronically Signed: Antonina Barron MD at 1:43 EST Tel , Service support , ADDENDUM: 04/03/21 0159 IMPRESSION: Asymmetric appearance of the CSF spaces may represent a secondary or indirect sign of edema in the right hemisphere which could be associated with injury possible hypoxic event or infarct. When appropriate recommend consideration for follow-up MRI. No visualized acute hemorrhage. The patient''s NG tube is coiled in the oropharynx. This should be repositioned. N.B. : The above Results were Read Back by Antonina Barron MD to Dr. Dee MD, and understanding confirmed on 04/03/2021 01:52:37 (ET). Electronically Signed: Antonina Barron MD at 1:43 EST Tel , Service support ,
[2021-04-03 18:27] LABS: ALB/GLOB Ratio 0.4 RATIO (0.9-2.4); AST(SGOT) 66 U/L (15-37); Alanine Aminotransfer ALT/SGPT 32 U/L (16-61); Albumin, Serum 2.1 g/dL (3.2-5.0); Alkaline Phosphatase 55 U/L (45-117); Anion Gap 8 (5-15); BUN 63 mg/dL (7-18); BUN/Creat Ratio 33.9 RATIO (10-20); Calcium,Total 8.1 mg/dL (8.5-10.1); Chloride 121 mmol/L (98-107); Creatinine, Serum 1.86 mg/dL (0.70-1.30); EST Glomerular Filtration Rate 39 mL/min (>60); Est Glom Filt Rate - Afr Amer 48 mL/min (>60); Globulin 4.7 g/dL (2.2-4.2); Glucose 121 mg/dL (74-106); Potassium 3.3 mmol/L (3.5-5.1); Protein, Total 6.8 g/dL (6.4-8.2); Sodium Level 151 mmol/L (136-145)
--- NOTE | 2021-04-03 18:32 | PCM.HOSP.N ---
Hospitalist Note Patient was seen and examined today in the ICU, he is sedated and on the ventilator at this time, he was seen in consultation by cardiology today, patient appears to have had a non-STEMI, he is also currently on pressor agents and appears to have septic shock. Chest x-ray shows a left lower lobe infiltrate. Critical care is participating in his care in the ICU.
[2021-04-03] MEDS: Potassium Chloride 20mEq/100mL 20 MEQ/100 ML IV.SOLN. 100 MEQ IV BOLUS ×2 (19:57→21:22)
[2021-04-03 20:40] LABS: Partial Thromboplast Time 119.6 Seconds (24.1-36.2)
[2021-04-03] MEDS: 0.9% Saline Lock 10 ML Syringe IV (21:22)
[2021-04-03] MEDS: Chlorhexidine 15 ML PO (22:00)
--- NOTE | 2021-04-03 23:49 | CT_ITS ---
We are attempting to reach an attending provider to discuss findings. An addendum with communication details will be sent when the communication is complete. STUDY: CT BRAIN WITHOUT CONTRAST REASON FOR EXAM: Male, 61 years old. Altered mental status RADIATION DOSAGE (If Supplied By Facility): CTDIvol = ( 44.99 ) mGy, DLP = ( 897.35 ) mGycm TECHNIQUE: Transaxial CT imaging of the brain was performed without administration of intravenous contrast material. Individualized dose optimization techniques were used for this CT. COMPARISON: 09/08/2018 CT head FINDINGS: Normal soft tissue structures. Normal calvarium. The patient is intubated. The NG tube is coiled in the oropharynx. There is visualize fluid in the nasopharyngeal space. There is mild cerebral atrophy with widening of the extra-axial spaces and ventricular dilatation. There is an asymmetric appearance of the CSF spaces. There is a diminished appearance of the right CSF spaces compared to the left. There is also slight effacement of the right side of the ventricles when compared to the prior study. Normal white matter tracts of the cerebral hemispheres. Normal basal ganglia and thalami. Normal brainstem. There is moderate cerebellar atrophy. There is no intracranial hemorrhage. Normal visualized paranasal sinuses. CT/Brain/Head without Contrast IMPRESSION: Asymmetric appearance of the CSF spaces may represent a secondary or indirect sign of edema in the right hemisphere which could be associated with injury possible hypoxic event or infarct. When appropriate recommend consideration for follow-up MRI. No visualized acute hemorrhage. The patient''s NG tube is coiled in the oropharynx. This should be repositioned. Electronically Signed: Antonina Barron MD at 1:43 EST Tel , Service support ,
[2021-04-04] VITALS (53 sets, daily range): BP systolic 55–104; BP diastolic 27–86; PULSE 104–129; RESP 17–29; TEMP 37.1–40.8; O2SAT 95–100
[2021-04-04] MEDS: Acetaminophen 650 MG/20 ML UDC GT ×3 (00:25→21:09)
[2021-04-04] MEDS: Vancomycin IV 1,000 MG/200 ML BAG 200 MG IV (05:26)
[2021-04-04 05:28] LABS: Absolute Lymphocyte Count 0.66 X10^3/uL (0.83-4.51); Absolute Neutrophil Count 19.1 X10^3/uL (2.0-7.7); Basophil# 0.04 X10^3/uL; Basophil% 0.2 % (0-1); Hematocrit 40.9 % (40-54); Hemoglobin 12.1 g/dL (13.0-16.5); Lymphocyte # 0.66 X10^3/ul (0.83-4.51); Lymphocyte % 3.2 % (19-41); Mean Corp Hgb Conc 29.6 g/dL (32-36); Mean Corpuscular Hgb 29.5 pg (27.0-32.0); Mean Corpuscular Volume 99.8 fL (80-94); Mean Platelet Vol. 11.6 fl (6.2-12.0); Monocyte% 3.9 % (0-10); NRBC Flagged by Analyzer 0.2 % (0-5); Neutrophil # 19.05 X10^3/uL (2.7-7.7); Neutrophil % 91.6 % (47-70); Platelet Count 222 K/mm3 (150-450); RBC Distribution Width CV 15.2 % (11.6-14.6); RBC Distribution Width SD 56.6 fl (35.1-43.9); White Blood Count 20.8 K/mm3 (4.4-11.0)
[2021-04-04 05:35] LABS: Partial Thromboplast Time 57.3 Seconds (24.1-36.2)
[2021-04-04 05:46] LABS: ALB/GLOB Ratio 0.5 RATIO (0.9-2.4); AST(SGOT) 257 U/L (15-37); Alanine Aminotransfer ALT/SGPT 129 U/L (16-61); Albumin, Serum 2.2 g/dL (3.2-5.0); Alkaline Phosphatase 57 U/L (45-117); Anion Gap 12 (5-15); BUN 57 mg/dL (7-18); BUN/Creat Ratio 23.5 RATIO (10-20); Calcium,Total 8.1 mg/dL (8.5-10.1); Chloride 114 mmol/L (98-107); Creatinine, Serum 2.43 mg/dL (0.70-1.30); EST Glomerular Filtration Rate 29 mL/min (>60); Est Glom Filt Rate - Afr Amer 35 mL/min (>60); Estimated Creatinine Clearance 30.81 ml/min; Globulin 4.7 g/dL (2.2-4.2); Glucose 284 mg/dL (74-106); Protein, Total 6.9 g/dL (6.4-8.2); Sodium Level 143 mmol/L (136-145)
--- NOTE | 2021-04-04 07:22 | PN.CC_ITS ---
Assessment & Plan Assessment/Plan (1) Acute respiratory failure with hypoxia: (2) Septic shock: PLAN: RECOMMENDATIONS: 1. Continue antimicrobials. 2. Wean FiO2/PEEP for saturations greater than 90%. 3. Continue vasopressors to maintain a mean arterial pressure at or above 65 mmHg. 4. Stop D5W. 5. Continue appropriate GI prophylaxis. 6. Start bicarbonate infusion given acidemia and worsening renal insufficiency. 7. Obtain nephrology consultation. IMPRESSIONS: 1. Acute combined respiratory failure The patient was emergently intubated in the ED after being found unresponsive at his group home facility. The exact etiology for his acute decompensation is not clear. Regardless, CTA showed no evidence for PE, but did demonstrate multifocal airspace disease consistent with pneumonia. The patient will be continued on assist control mode of mechanical ventilation. FiO2 and PEEP will be weaned for saturations greater than 90%. Continue broad-spectrum antimicrobials, while awaiting infectious work-up. 2. Encephalopathy Unclear etiology. Initial head CT demonstrated findings which could have re presented possible hypoxic event or infarct. Therefore, MRI brain was obtained but was found to be normal. Underlying metabolic derangements were also likely contributing. EEG was also unremarkable. 3. Septic shock Likely secondary to underlying pulmonary infectious etiology. Rapid coronavirus and PCR testing was negative. Accordingly, the patient will be continued on b road-spectrum antimicrobials, while awaiting finalized infectious work-up. Continue vasopressor support to maintain a mean arterial pressure at or above 65 mmHg. 4. Hypernatremia/hyperchloremia/hypokalemia Start D5W, given rising sodium and chloride levels. Continue aggressive electrolyte repletion. 5. Acute kidney injury/nongap metabolic acidosis Likely prerenal in etiology and related to acute presentation in the setting of #3. Renal function continues to worsen with time. Given acidemia noted on ABG this morning, the patient will be started on a bicarbonate infusion. Nephrology consultation will be obtained. 6. Troponin elevation Most likely secondary to demand ischemia in the setting of the above. Echoc ardiogram was largely unrevealing. Continue heparin infusion for now. 7. History of alcoholism in remission/history of tobacco dependency in remission/hyperlipidemia/bipolar/schizophrenia Complicates care, management, recovery and prognosis. Continue supportive measures as noted above. TIME: 37 minutes of critical care time, independent of procedures, was spent addressing the patient's acute combined respiratory failure, encephalopathy, septic shock, acute kidney injury, NSTEMI, review of all data and collaboration with the care team. Subjective Subjective The patient was seen and examined at the bedside this morning. Events from the last 24 hours have been reviewed. The patient developed high-grade fevers overnight with a T-max of 105.5 ?F. The patient is not currently on any form of sedation. He remains on assist control mode of mechanical ventilation with an FiO2 requirement of 70% and PEEP of 12. The patient is currently requiring Levophed at 20 mcg/min to maintain hemodynamic stability. He is currently documented to be overall net +6 L for the hospitalization. White count is elevated at 20,000. Creatinine is worsened to 2.43 with a bicarbonate of 17. Objective Data Objective Data The patient's most recent lab work, culture data and imaging studies have all been personally reviewed. Right upper quadrant ultrasound revealed cholelithiasis with slight intrahepatic bile duct dilation. Brain MRI was unremarkable. Surface echocardiogram demonstrated normal LV size and function with an ejection fraction of 55% and a pulmonary artery systolic pressure of 33 mmHg. Preliminary sputum culture demonstrated 3+ gram-negative rods. Rapid coronavirus and PCR testing were both negative. Vital Signs: Vital Signs Temp Pulse Resp BP Pulse Ox 102.2 F H 110 H 22 H 73/60 L 100 04/04/21 05:00 04/04/21 07:17 04/04/21 07:17 04/04/21 05:45 04/04/21 07:17 Oxygen Flow Rate (L/min) 15 Oxygen Delivery Method Mechanical Ventilator Weight: 69.1 kg Body Mass Index (BMI) 20.6 Intake & Output: Intake and Output for Last 24 Hours 04/02/21 04/03/21 04/04/21 23:59 23:59 23:59 Intake Total 5896.17 / 5896.17 1168.52 / 1168.52 Output Total 700 / 700 300 / 300 Balance 5196.17 / 5196.17 868.52 / 868.52 Lab / Micro Data Attestation: I reviewed the patient's lab results. Result Diagrams: 04/04/21 05:15 04/04/21 05:15 Labs: Laboratory Results - last 24 hr 04/03/21 04:10: Troponin I High Sens 1340 H* 04/03/21 11:25: PT 17.7 H, INR 1.5 04/03/21 11:25: APTT > 250.0 H* 04/03/21 11:25: Troponin I High Sens 632 H* 04/03/21 11:25: MRSA (PCR) Negative 04/03/21 17:50: Sodium 151 H, Potassium 3.3 L, Chloride 121 H, Carbon Dioxide 22.0, Anion Gap 8, BUN 63 H, Creatinine 1.86 H, Estim Creat Clear Calc 39.90, Est GFR (MDRD) Af Amer 48 L, Est GFR (MDRD) Non-Af 39 L, BUN/Creatinine Ratio 33.9 H, Glucose 121 H, Calcium 8.1 L, Total Bilirubin 0.80, AST 66 H, ALT 32, Alkaline Phosphatase 55, Total Protein 6.8, Albumin 2.1 L, Globulin 4.7 H, Albumin/Globulin Ratio 0.4 L 04/03/21 17:50: Ammonia 20.0 04/03/21 20:05: APTT 119.6 H* 04/04/21 05:15: APTT 57.3 H 04/04/21 05:15: WBC 20.8 H, RBC 4.10 L, Hgb 12.1 L, Hct 40.9, MCV 99.8 H D, MCH 29.5, MCHC 29.6 L D, RDW Std Deviation 56.6 H, RDW Coeff of Sandra 15.2 H, Plt Count 222, MPV 11.6, Immature Gran % (Auto) 1.100 H, Neut % (Auto) 91.6 H, Lymph % (Auto) 3.2 L, [place] % (Auto) 3.9, Eos % (Auto) 0.0, Baso % (Auto) 0.2, Absolute Neuts (auto) 19.1 H, Absolute Lymphs (auto) 0.66 L, Nucleated RBC % 0.2 04/04/21 05:15: Sodium 143, Potassium 5.0, Chloride 114 H, Carbon Dioxide 17.0 L , Anion Gap 12, BUN 57 H, Creatinine 2.43 H, Estim Creat Clear Calc 30.81, Est GFR (MDRD) Af Amer 35 L, Est GFR (MDRD) Non-Af 29 L, BUN/Creatinine Ratio 23.5 H , Glucose 284 H, Calcium 8.1 L, Total Bilirubin 1.40 H, AST 257 H, ALT 129 H, Alkaline Phosphatase 57, Total Protein 6.9, Albumin 2.2 L, Globulin 4.7 H, Albumin/Globulin Ratio 0.5 L Micro: Microbiology 04/03/21 02:03 Sputum, Tracheal Aspirate Gram Stain - Final 04/03/21 07:50 Mucosa - Nasopharyngeal Rapid RSV (DFA) - Final 04/03/21 07:50 Mucosa - Nasopharyngeal Influenza Types A,B Direct FA (ROSA) - Final 04/03/21 03:45 Urine Catheter - Dixon Legionella Antigen - Final 04/03/21 03:45 Urine Catheter - Dixon Streptococcus pneumoniae Antigen (M - Final 04/02/21 00:00 Nasal Secretion SARS-CoV-2 Antigen (Rapid) - Final ABG Data ABG results: ABG 04/03/21 08:50 Specimen Type ART Sample Site R Radial pH 7.29 L Bicarbonate Actual 20.7 L Total CO2 22 Base Excess -6 L O2 Saturation 96 O2 % 80 ABG pCO2 43.4 ABG pO2 91 Roly Test Positive Respiration Rate 18 O2 Delivery Device Adult Vent Vent Mode AC Tidal Volume 500 POC PEEP 12 Radiography Diagnostic Testing: Radiology Impression Echocardiogram 04/03/21 02:18 Interpretation Summary Normal LV size. Left ventricular systolic function is lower limits of normal. The estimated ejection fraction is 55 %. Small pericardial effusion. Pulmonary artery systolic pressure is 33 mmHg. Ordering Physician: Yenifer Treadwell Referring Physician: Kvng Leyva Performed By: Queta Chambers, PANDA, RVT Abdomen Ultrasound 04/03/21 03:39 IMPRESSION: 1. Cholelithiasis with slight intrahepatic bile duct dilation although common duct normal in caliber. Electronically Signed: Joaquín Winkler MD (Brooks) at 10:49 EST , Service support , Brain MRI 04/03/21 03:39 IMPRESSION: Normal unenhanced MRI of the brain. Electronically Signed: Mustapha Miller MD at 11:18 EST Tel , Service support , Chest X-Ray 04/03/21 13:24 IMPRESSION: There is a left lower lobe infiltrate. Electronically Signed: Anthony Watkins MD at 14:27 EST , Service support , Physical Exam Const no apparent distress General Appearance: ill appearing, intubated and patient mechanically ventilated HEENT normocephalic and head/scalp atraumatic Mouth: endotracheal tube in place and OG tube in place Eyes conjunctivae normal Pupil: sluggish Neck supple General: trachea midline and CVC in place Chest inspection of chest normal Resp Effort and Inspection: tachypneic Auscultation: diminished lung sounds; Negative for rales, rhonchi or wheezes Cardio S1 normal heart sound and S2 normal heart sound Rate: tachycardic GI normal to inspection, nondistended, normoactive bowel sounds Extremity no clubbing, cyanosis or edema Skin no rashes or lesions noted Neuro Neuro Narrative: The patient is not currently on any sedation. He remains nonresponsive to tactile and painful stimulation. Charges/Coding Procedures Hospitalists Procedures: [id number] Critial Care 1st Hr
[2021-04-04 08:20] LABS: Base Excess -20 mmol/L (-2 to +2); Bicarbonate 11.1 mmol/L (22-26); Blood Gas Specimen Type ART; FI02 55; Mode AC; O2 Delivery Device Adult Vent; PEEP 12; PO2 85 mmHG (75-100); RR 18; SITE R Fem; SO2 89 % (95-99); Total Carbon Dioxide 13 mmol/L; Vt 500; pCO2 46.3 mmHg (35-45); pH 6.99 (7.35-7.45)
[2021-04-04] MEDS: Chlorhexidine 15 ML PO ×2 (10:45→22:40)
[2021-04-04] MEDS: Aspirin 81 MG TAB.CHEW GT (10:45)
[2021-04-04 11:44] LABS: Partial Thromboplast Time 69.5 Seconds (24.1-36.2)
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
--- NOTE | 2021-04-04 11:55 | CON.PCM.ID_ITS ---
Assessment & Plan Assessment/Plan (1) Septic shock: PLAN: We will continue cefepime empirically. Okay to discontinue v ancomycin especially with his worsening renal function. Closely follow his microbiology data. I discussed this with the critical care physician Dr. Bansal. HPI Consult Data Date of Consult: 04/04/21 HPI Narrative HPI Narrative: RICKY ZIEGLER, is a 61 M who presents with acute respiratory failure and septic shock. Patient is from a [facility] facility, currently remains on the ventilator. History is obtained through review of the records. Patient does have multiple comorbidities including history of alcoholism, schizophrenia and generalized debilitation. Chest film reviewed. Microbiology data also reviewed. Over the last 24 hours patient has developed worsening renal function. Currently on vancomycin plus cefepime. [facility]LY [facility], [facility] Medical History Alcoholism in recovery Bipolar 1 disorder Debility History of tobacco abuse Hyperlipemia Reduced mobility Schizophrenia Home Medications atorvastatin 40 mg PO QHS 04/02/21 [History Last Taken Unknown] benztropine 1 mg PO Q12H PRN PRN 04/02/21 [History Last Taken Unknown] gabapentin 300 mg PO TID 04/02/21 [History Last Taken Unknown] levofloxacin [Levaquin] 500 mg PO DAILY 04/02/21 [History Last Taken Unknown] risperidone 0.5 mg PO QHS 04/02/21 [History Last Taken Unknown] risperidone 4 mg PO QHS 04/02/21 [History Last Taken Unknown] sertraline 100 mg PO BID 04/02/21 [History Last Taken Unknown] topiramate 150 mg PO QHS 04/02/21 [History Last Taken Unknown] Allergy/AdvReac Type Severity Reaction Status Date / Time No Known Allergies Allergy Verified 04/02/21 23:16 Social History Smoking Status: Former smoker alcohol intake: former details: Was a heavy drinker up until 2007 substance use type: does not use Physical Exam Narrative Sedated on the ventilator lungs with some coarse breath sounds heart exam S1-S2 abdomen soft nontender. No skin lesions noted. Lab / Micro Data Result Diagrams: 04/04/21 05:15 04/04/21 05:15 Labs: Laboratory Results - last 24 hr 04/03/21 11:25: PT 17.7 H, INR 1.5 04/03/21 11:25: APTT > 250.0 H* 04/03/21 11:25: Troponin I High Sens 632 H* 04/03/21 11:25: MRSA (PCR) Negative 04/03/21 17:50: Sodium 151 H, Potassium 3.3 L, Chloride 121 H, Carbon Dioxide 22.0, Anion Gap 8, BUN 63 H, Creatinine 1.86 H, Estim Creat Clear Calc 39.90, Est GFR (MDRD) Af Amer 48 L, Est GFR (MDRD) Non-Af 39 L, BUN/Creatinine Ratio 33.9 H, Glucose 121 H, Calcium 8.1 L, Total Bilirubin 0.80, AST 66 H, ALT 32, Alkaline Phosphatase 55, Total Protein 6.8, Albumin 2.1 L, Globulin 4.7 H, Albumin/Globulin Ratio 0.4 L 04/03/21 17:50: Ammonia 20.0 04/03/21 20:05: APTT 119.6 H* 04/04/21 05:15: APTT 57.3 H 04/04/21 05:15: WBC 20.8 H, RBC 4.10 L, Hgb 12.1 L, Hct 40.9, MCV 99.8 H D, MCH 29.5, MCHC 29.6 L D, RDW Std Deviation 56.6 H, RDW Coeff of Sandra 15.2 H, Plt Count 222, MPV 11.6, Immature Gran % (Auto) 1.100 H, Neut % (Auto) 91.6 H, Lymph % (Auto) 3.2 L, [place] % (Auto) 3.9, Eos % (Auto) 0.0, Baso % (Auto) 0.2, Absolute Neuts (auto) 19.1 H, Absolute Lymphs (auto) 0.66 L, Nucleated RBC % 0.2 04/04/21 05:15: Sodium 143, Potassium 5.0, Chloride 114 H, Carbon Dioxide 17.0 L , Anion Gap 12, BUN 57 H, Creatinine 2.43 H, Estim Creat Clear Calc 30.81, Est GFR (MDRD) Af Amer 35 L, Est GFR (MDRD) Non-Af 29 L, BUN/Creatinine Ratio 23.5 H , Glucose 284 H, Calcium 8.1 L, Total Bilirubin 1.40 H, AST 257 H, ALT 129 H, Alkaline Phosphatase 57, Total Protein 6.9, Albumin 2.2 L, Globulin 4.7 H, Albumin/Globulin Ratio 0.5 L 04/04/21 11:15: APTT 69.5 H Micro: Microbiology 04/03/21 02:03 Sputum, Tracheal Aspirate Gram Stain - Final 04/03/21 07:50 Mucosa - Nasopharyngeal Rapid RSV (DFA) - Final 04/03/21 07:50 Mucosa - Nasopharyngeal Influenza Types A,B Direct FA (ROSA) - Final ABG Data ABG results: ABG 04/04/21 08:16 Specimen Type ART Sample Site R Fem pH 6.99 L* Bicarbonate Actual 11.1 L Total CO2 13 Base Excess -20 L O2 Saturation 89 L O2 % 55 ABG pCO2 46.3 H ABG pO2 85 Respiration Rate 18 O2 Delivery Device Adult Vent Vent Mode AC Tidal Volume 500 POC PEEP 12 Crit Call To/Read Back Yes Blood Gas Notified Whom BROWN Radiology Impression Echocardiogram 04/03/21 02:18 Interpretation Summary Normal LV size. Left ventricular systolic function is lower limits of normal. The estimated ejection fraction is 55 %. Small pericardial effusion. Pulmonary artery systolic pressure is 33 mmHg. Ordering Physician: Yenifer Treadwlel Referring Physician: Kvng Leyva Performed By: Queta Chambers, PANDA, RVT Chest X-Ray 04/03/21 13:24 IMPRESSION: There is a left lower lobe infiltrate. Electronically Signed: Anthony Watkins MD at 14:27 EST , Service support ,
--- NOTE | 2021-04-04 16:54 | PCM.CONS.R ---
Assessment & Plan Assessment/Plan (1) DEEPIKA (acute kidney injury): PLAN: due to DEEPIKA. due to severe septic shock. on 3 pressors. will not tolerate dialysis with current BP parameters. bicarbonate drip for now. critically ill. maty Bansal HPI Consult Data Date of Consult: 04/04/21 HPI Narrative HPI Narrative: RICKY ZIEGLER, is a 61 M who presents to the hospital with sepsis, septic shock, gm neg bacteremia. renal consulted for DEEPIKA. currently he is anuric, acidotic, ROS can not be obtained. [facility] Medical History Alcoholism in recovery Bipolar 1 disorder Debility History of tobacco abuse Hyperlipemia Reduced mobility Schizophrenia Home Medications atorvastatin 40 mg PO QHS 04/02/21 [History Last Taken Unknown] benztropine 1 mg PO Q12H PRN PRN 04/02/21 [History Last Taken Unknown] gabapentin 300 mg PO TID 04/02/21 [History Last Taken Unknown] levofloxacin [Levaquin] 500 mg PO DAILY 04/02/21 [History Last Taken Unknown] risperidone 0.5 mg PO QHS 04/02/21 [History Last Taken Unknown] risperidone 4 mg PO QHS 04/02/21 [History Last Taken Unknown] sertraline 100 mg PO BID 04/02/21 [History Last Taken Unknown] topiramate 150 mg PO QHS 04/02/21 [History Last Taken Unknown] Allergy/AdvReac Type Severity Reaction Status Date / Time No Known Allergies Allergy Verified 04/02/21 23:16 Social History Smoking Status: Former smoker alcohol intake: former details: Was a heavy drinker up until 2007 substance use type: does not use ROS ROS Narrative unable to be obtained Physical Exam Narrative intubated no pallor no icterus no JVD s1s2 no murmurs lungs clear abdomen soft no organomegaly no edema no cyanosis shah + Lab / Micro Data Result Diagrams: 04/04/21 05:15 04/04/21 05:15 Labs: Laboratory Results - last 24 hr 04/03/21 17:50: Sodium 151 H, Potassium 3.3 L, Chloride 121 H, Carbon Dioxide 22.0, Anion Gap 8, BUN 63 H, Creatinine 1.86 H, Estim Creat Clear Calc 39.90, Est GFR (MDRD) Af Amer 48 L, Est GFR (MDRD) Non-Af 39 L, BUN/Creatinine Ratio 33.9 H, Glucose 121 H, Calcium 8.1 L, Total Bilirubin 0.80, AST 66 H, ALT 32, Alkaline Phosphatase 55, Total Protein 6.8, Albumin 2.1 L, Globulin 4.7 H, Albumin/Globulin Ratio 0.4 L 04/03/21 17:50: Ammonia 20.0 04/03/21 20:05: APTT 119.6 H* 04/04/21 05:15: APTT 57.3 H 04/04/21 05:15: WBC 20.8 H, RBC 4.10 L, Hgb 12.1 L, Hct 40.9, MCV 99.8 H D, MCH 29.5, MCHC 29.6 L D, RDW Std Deviation 56.6 H, RDW Coeff of Sandra 15.2 H, Plt Count 222, MPV 11.6, Immature Gran % (Auto) 1.100 H, Neut % (Auto) 91.6 H, Lymph % (Auto) 3.2 L, [place] % (Auto) 3.9, Eos % (Auto) 0.0, Baso % (Auto) 0.2, Absolute Neuts (auto) 19.1 H, Absolute Lymphs (auto) 0.66 L, Nucleated RBC % 0.2 04/04/21 05:15: Sodium 143, Potassium 5.0, Chloride 114 H, Carbon Dioxide 17.0 L, Anion Gap 12, BUN 57 H, Creatinine 2.43 H, Estim Creat Clear Calc 30.81, Est GFR (MDRD) Af Amer 35 L, Est GFR (MDRD) Non-Af 29 L, BUN/Creatinine Ratio 23.5 H, Glucose 284 H, Calcium 8.1 L, Total Bilirubin 1.40 H, AST 257 H, ALT 129 H, Alkaline Phosphatase 57, Total Protein 6.9, Albumin 2.2 L, Globulin 4.7 H, Albumin/Globulin Ratio 0.5 L 04/04/21 11:15: APTT 69.5 H Micro: Microbiology 04/03/21 02:03 Sputum, Tracheal Aspirate Gram Stain - Final 04/03/21 02:03 Sputum, Tracheal Aspirate Respiratory Culture - Preliminary Appears to be normal respiratory sandra. Further studies to follow. 04/03/21 00:10 Urine Catheter - Shah Urine Culture - Preliminary Culture exhibits no growth. ABG Data ABG results: ABG 04/04/21 08:16 Specimen Type ART Sample Site R Fem pH 6.99 L* Bicarbonate Actual 11.1 L Total CO2 13 Base Excess -20 L O2 Saturation 89 L O2 % 55 ABG pCO2 46.3 H ABG pO2 85 Respiration Rate 18 O2 Delivery Device Adult Vent Vent Mode AC Tidal Volume 500 POC PEEP 12 Crit Call To/Read Back Yes Blood Gas Notified Whom KARRI
[2021-04-04] MEDS: Phenylephrine 40 mg/250 mL 0.9% NS 67.5 MG CONT INF ×2 (18:35→22:36)
[2021-04-04 18:45] LABS: Partial Thromboplast Time 74.4 Seconds (24.1-36.2)
--- NOTE | 2021-04-04 20:44 | PN_ITS ---
Subjective Subjective Patient was seen and examined today, he remains on the ventilator at this time under sedation. His status is extremely poor, he presently is a DNR CC arrest with intubation. Patient remains on maximal pressor agents at this time. Objective Data Objective Data Vital Signs: Vital Signs Temp Pulse Resp BP Pulse Ox 102.4 F H 112 H 25 H 78/62 L 98 04/04/21 17:01 04/04/21 18:10 04/04/21 17:01 04/04/21 18:37 04/04/21 17:32 Oxygen Flow Rate (L/min) 55 Oxygen Delivery Method Mechanical Ventilator Weight: 69.1 kg Body Mass Index (BMI) 20.6 Intake & Output: Intake and Output for Last 24 Hours 04/02/21 04/03/21 04/04/21 23:59 23:59 23:59 Intake Total 5896.17 / 5896.17 5459.36 / 5459.36 Output Total 700 / 700 650 / 650 Balance 5196.17 / 5196.17 4809.36 / 4809.36 Lab / Micro Data Result Diagrams: 04/04/21 05:15 04/04/21 05:15 Labs: Laboratory Results - last 24 hr 04/04/21 05:15: APTT 57.3 H 04/04/21 05:15: WBC 20.8 H, RBC 4.10 L, Hgb 12.1 L, Hct 40.9, MCV 99.8 H D, MCH 29.5, MCHC 29.6 L D, RDW Std Deviation 56.6 H, RDW Coeff of Sandra 15.2 H, Plt Count 222, MPV 11.6, Immature Gran % (Auto) 1.100 H, Neut % (Auto) 91.6 H, Lymph % (Auto) 3.2 L, [place] % (Auto) 3.9, Eos % (Auto) 0.0, Baso % (Auto) 0.2, Absolute Neuts (auto) 19.1 H, Absolute Lymphs (auto) 0.66 L, Nucleated RBC % 0.2 04/04/21 05:15: Sodium 143, Potassium 5.0, Chloride 114 H, Carbon Dioxide 17.0 L , Anion Gap 12, BUN 57 H, Creatinine 2.43 H, Estim Creat Clear Calc 30.81, Est GFR (MDRD) Af Amer 35 L, Est GFR (MDRD) Non-Af 29 L, BUN/Creatinine Ratio 23.5 H , Glucose 284 H, Calcium 8.1 L, Total Bilirubin 1.40 H, AST 257 H, ALT 129 H, Alkaline Phosphatase 57, Total Protein 6.9, Albumin 2.2 L, Globulin 4.7 H, Albumin/Globulin Ratio 0.5 L 04/04/21 11:15: APTT 69.5 H 04/04/21 18:20: APTT 74.4 H Micro: Microbiology 04/03/21 02:03 Sputum, Tracheal Aspirate Gram Stain - Final 04/03/21 02:03 Sputum, Tracheal Aspirate Respiratory Culture - Preliminary Appears to be normal respiratory sandra. Further studies to follow. 04/03/21 00:10 Urine Catheter - Dixon Urine Culture - Preliminary Culture exhibits no growth. 04/03/21 07:50 Mucosa - Nasopharyngeal Rapid RSV (DFA) - Final 04/03/21 07:50 Mucosa - Nasopharyngeal Influenza Types A,B Direct FA (ROSA) - Final 04/03/21 03:45 Urine Catheter - Dixon Legionella Antigen - Final 04/03/21 03:45 Urine Catheter - Dixon Streptococcus pneumoniae Antigen (M - Final 04/02/21 00:00 Nasal Secretion SARS-CoV-2 Antigen (Rapid) - Final ABG Data ABG results: ABG 04/04/21 08:16 Specimen Type ART Sample Site R Fem pH 6.99 L* Bicarbonate Actual 11.1 L Total CO2 13 Base Excess -20 L O2 Saturation 89 L O2 % 55 ABG pCO2 46.3 H ABG pO2 85 Respiration Rate 18 O2 Delivery Device Adult Vent Vent Mode AC Tidal Volume 500 POC PEEP 12 Crit Call To/Read Back Yes Blood Gas Notified Whom BROWN Physical Exam Const healthy appearing Constitutional Narrative: Patient is sedated and on the ventilator at this time General Appearance: well kempt Orientation / Consciousness: awake, oriented to person, oriented to place and oriented to time HEENT normocephalic, head/scalp atraumatic and moist oral mucous membranes Eyes PERRL, EOMs intact bilaterally and conjunctivae normal Neck no JVD and thyroid normal General: trachea midline Resp normal respiratory effort, normal air movement and clear to auscultation bilaterally Auscultation: Negative for rales, rhonchi or wheezes Cardio regular rate, regular rhythm, S1 normal heart sound, S2 normal heart sound, no murmurs, no rub and no gallops GI normal to inspection, nondistended, normoactive bowel sounds, soft to palpation, non-tender and non-distended Extremity no clubbing, cyanosis or edema Skin no rashes or lesions noted General Skin Exam: no breakdown Neuro oriented x3, CN's II-XII intact bilaterally, no focal motor deficits and no sensory deficits noted Sensorium / Orientation: awake and alert Speech: speech normal Psych thought process normal and affect normal Assessment & Plan Assessment/Plan (1) Acute respiratory failure with hypoxia: PLAN: 1. Septic shock-probably secondary to aspiration pneumonia, patient is being maintained on antibiotics at this time and is on maximal doses of pressors, his blood pressure is marginal at this time and his overall prognosis is poor. #2 acute hypoxic respiratory failure-patient remains on the ventilator at this time, critical care is participating in his care #3 [id number] does not feel the patient is stable for any procedures, it is recommended he be treated medically #4 aspiration pneumonia-patient is currently on antibiotics #5 acute kidney injury-patient is being seen by nephrology at this time #6 schizophrenia/bipolar illness-complicates care and recovery Charges/Coding Visit Charges Inpatient E&M: 02992 Subs Hosp L2
[2021-04-05] VITALS (30 sets, daily range): BP systolic 49–96; BP diastolic 38–83; PULSE 95–115; RESP 13–26; TEMP 38.5–39.7; O2SAT 61–100
[2021-04-05] MEDS: Phenylephrine 40 mg/250 mL 0.9% NS 67.5 MG CONT INF ×2 (02:08→10:23)
[2021-04-05] MEDS: Phenylephrine 40 mg/250 mL 0.9% NS 60 MG CONT INF (06:10)
[2021-04-05 06:13] LABS: Partial Thromboplast Time 51.3 Seconds (24.1-36.2)
--- NOTE | 2021-04-05 07:11 | PN.CC_ITS ---
Assessment & Plan Assessment/Plan (1) Acute respiratory failure with hypoxia: (2) Septic shock: PLAN: RECOMMENDATIONS: 1. Continue antimicrobials. 2. Wean FiO2/PEEP for saturations greater than 90%. 3. Continue vasopressors to maintain a mean arterial pressure at or above 65 mmHg. 4. Continue appropriate GI prophylaxis. 5. Okay to stop bicarbonate infusion. 6. Prognosis is exceedingly poor. Plan for further goals of care discussion with the patient's family today. IMPRESSIONS: 1. Acute combined respiratory failure The patient was emergently intubated in the ED after being found unresponsive at his long-term facility. The exact etiology for his acute decompensation is not clear. Regardless, CTA showed no evidence for PE, but did demonstrate multifocal airspace disease consistent with pneumonia. The patient will be continued on assist control mode of mechanical ventilation. FiO2 and PEEP will be weaned for saturations greater than 90%. Continue broad-spectrum antimicrobials. 2. Encephalopathy Unclear etiology. Initial head CT demonstrated findings which could have represented possible hypoxic event or infarct. Therefore, MRI brain was obtained but was found to be normal. Underlying metabolic derangements are also likely contributing. EEG was also unremarkable. 3. Septic shock Likely secondary to underlying pulmonary infectious etiology. Rapid coronavirus and PCR testing was negative. Accordingly, the patient will be continued on broad-spectrum antimicrobials, while awaiting finalized infectious work-up. Continue vasopressor support to maintain a mean arterial pressure at or above 65 mmHg. 4. Acute kidney injury/nongap metabolic acidosis Likely prerenal in etiology and related to acute presentation in the setting of #3. Renal function continues to worsen with time. Family is not wishing to pursue dialysis support. 5. Acute liver injury Likely secondary to shock liver. Continue to monitor liver function profile. Continue vasopressor support in an attempt to maintain hemodynamic stability. 6. Troponin elevation Most likely secondary to demand ischemia in the setting of the above. Echocardiogram was largely unrevealing. Continue heparin infusion for now. 7. History of alcoholism in remission/history of tobacco dependency in remission/hyperlipidemia/bipolar/schizophrenia Complicates care, management, recovery and prognosis. Continue supportive measures as noted above. TIME: 34 minutes of critical care time, independent of procedures, was spent addressing the patient's acute combined respiratory failure, encephalopathy, septic shock, acute kidney injury, acute liver injury, NSTEMI, review of all data and collaboration with the care team. Subjective Subjective The patient was seen and examined at the bedside this morning. Events from the last 24 hours have been reviewed. The patient currently has a fever of 102.5 ?F. The patient remains unresponsive off of all forms of sedation. He remains on a combination of Levophed, vasopressin and phenylephrine in an attempt to maintain hemodynamic stability. He is currently documented to be overall net +12.6 L for the hospitalization. White count remains elevated at 14,000. Creatinine has worsened to 3.42. AST and ALT are significantly increased at 16,181 and 4369, respectively. Objective Data Objective Data The patient's most recent lab work, culture data and imaging studies have all been personally reviewed. Right upper quadrant ultrasound revealed cholelithiasis with slight intrahepatic bile duct dilation. Brain MRI was unremarkable. Surface echocardiogram demonstrated normal LV size and function with an ejection fraction of 55% and a pulmonary artery systolic pressure of 33 mmHg. Sputum culture is pending. Rapid coronavirus and PCR testing were both negative. Vital Signs: Vital Signs Temp Pulse Resp BP Pulse Ox 102.5 F H 109 H 22 H 93/75 100 04/05/21 05:00 04/05/21 06:00 04/05/21 06:00 04/05/21 06:00 04/05/21 06:00 Oxygen Flow Rate (L/min) 55 Oxygen Delivery Method Mechanical Ventilator Weight: 76.4 kg Body Mass Index (BMI) 20.6 Intake & Output: Intake and Output for Last 24 Hours 04/03/21 04/04/21 04/05/21 23:59 23:59 23:59 Intake Total 5896.17 / 5896.17 6097.31 / 6207.22 2055.49 / 2055.49 Output Total 700 / 700 650 / 650 25 / 25 Balance 5196.17 / 5196.17 5447.31 / 5557.22 2030.49 / 2030.49 Lab / Micro Data Attestation: I reviewed the patient's lab results. Result Diagrams: 04/05/21 05:47 04/05/21 05:47 Labs: Laboratory Results - last 24 hr 04/04/21 11:15: APTT 69.5 H 04/04/21 18:20: APTT 74.4 H 04/05/21 05:47: APTT 51.3 H Micro: Microbiology 04/02/21 23:21 Blood Culture (Wb) - Left Wrist Blood Culture - Preliminary No growth in 48 hours. 04/02/21 23:20 Blood Culture (Wb) - Anticubital Right Blood Culture - Preliminary No growth in 48 hours. 04/03/21 02:03 Sputum, Tracheal Aspirate Gram Stain - Final 04/03/21 02:03 Sputum, Tracheal Aspirate Respiratory Culture - Preliminary Appears to be normal respiratory sandra. Further studies to follow. 04/03/21 00:10 Urine Catheter - Dixon Urine Culture - Preliminary Culture exhibits no growth. 04/03/21 07:50 Mucosa - Nasopharyngeal Rapid RSV (DFA) - Final 04/03/21 07:50 Mucosa - Nasopharyngeal Influenza Types A,B Direct FA (ROSA) - Final 04/03/21 03:45 Urine Catheter - Dixon Legionella Antigen - Final 04/03/21 03:45 Urine Catheter - Dixon Streptococcus pneumoniae Antigen (M - Final 04/02/21 00:00 Nasal Secretion SARS-CoV-2 Antigen (Rapid) - Final ABG Data ABG results: ABG 04/04/21 08:16 Specimen Type ART Sample Site R Fem pH 6.99 L* Bicarbonate Actual 11.1 L Total CO2 13 Base Excess -20 L O2 Saturation 89 L O2 % 55 ABG pCO2 46.3 H ABG pO2 85 Respiration Rate 18 O2 Delivery Device Adult Vent Vent Mode AC Tidal Volume 500 POC PEEP 12 Crit Call To/Read Back Yes Blood Gas Notified Whom BROWN Physical Exam Const no apparent distress General Appearance: ill appearing, intubated and patient mechanically ventilated HEENT normocephalic and head/scalp atraumatic Mouth: endotracheal tube in place and OG tube in place Eyes conjunctivae normal Pupil: sluggish Neck supple General: trachea midline and CVC in place Chest inspection of chest normal Resp Effort and Inspection: tachypneic Auscultation: diminished lung sounds; Negative for rales, rhonchi or wheezes Cardio S1 normal heart sound and S2 normal heart sound Rate: tachycardic GI normal to inspection, nondistended, normoactive bowel sounds Extremity no clubbing, cyanosis or edema Skin no rashes or lesions noted Neuro Neuro Narrative: The patient is not currently on any sedation. He remains nonresponsive to tactile and painful stimulation. Charges/Coding Procedures Hospitalists Procedures: 47147 Critial Care 1st Hr
[2021-04-05 07:47] LABS: Absolute Lymphocyte Count 1.14 X10^3/uL (0.83-4.51); Absolute Neutrophil Count 12.1 X10^3/uL (2.0-7.7); Basophil# 0.01 X10^3/uL; Basophil% 0.1 % (0-1); Hematocrit 34.8 % (40-54); Hemoglobin 10.6 g/dL (13.0-16.5); Lymphocyte # 1.14 X10^3/ul (0.83-4.51); Lymphocyte % 8.3 % (19-41); Mean Corp Hgb Conc 30.5 g/dL (32-36); Mean Corpuscular Hgb 28.8 pg (27.0-32.0); Mean Corpuscular Volume 94.6 fL (80-94); Mean Platelet Vol. 12.8 fl (6.2-12.0); Monocyte# 0.33 X10^3/uL; Monocyte% 2.4 % (0-10); NRBC Flagged by Analyzer 0.4 % (0-5); Neutrophil # 12.12 X10^3/uL (2.7-7.7); Neutrophil % 88.5 % (47-70); POSITIVE COUNT YES; Platelet Count 78 K/mm3 (150-450); RBC Distribution Width CV 14.8 % (11.6-14.6); RBC Distribution Width SD 52.5 fl (35.1-43.9); Red Blood Count 3.68 M/mm3 (4.6-6.2); White Blood Count 13.7 K/mm3 (4.4-11.0)
[2021-04-05] MEDS: Heparin Injection (Vial) 5,000 UNIT/ML VIAL IV (08:07)
[2021-04-05 08:15] LABS: Differential Indicated SCAN CRITERIA MET
[2021-04-05 08:16] LABS: Differential Comment SCANNED
[2021-04-05 08:35] LABS: ALB/GLOB Ratio 0.4 RATIO (0.9-2.4); AST(SGOT) 16181 U/L (15-37); Alanine Aminotransfer ALT/SGPT 4369 U/L (16-61); Albumin, Serum 1.6 g/dL (3.2-5.0); Alkaline Phosphatase 55 U/L (45-117); Anion Gap 12 (5-15); BUN 65 mg/dL (7-18); Calcium,Total 6.5 mg/dL (8.5-10.1); Chloride 109 mmol/L (98-107); Creatinine, Serum 3.42 mg/dL (0.70-1.30); EST Glomerular Filtration Rate 20 mL/min (>60); Est Glom Filt Rate - Afr Amer 24 mL/min (>60); Globulin 3.7 g/dL (2.2-4.2); Glucose 206 mg/dL (74-106); Potassium 4.2 mmol/L (3.5-5.1); Protein, Total 5.3 g/dL (6.4-8.2); Sodium Level 142 mmol/L (136-145)
[2021-04-05] MEDS: Aspirin 81 MG TAB.CHEW GT (08:39)
[2021-04-05] MEDS: Chlorhexidine 15 ML PO (08:39)
[2021-04-05] MEDS: morphine 10 MG/ML Syringe IV (13:03)
[2021-04-05] MEDS: Midazolam 2 MG/2 ML Syringe 5 MG IV (13:03)
--- NOTE | 2021-04-05 13:05 | NURSING ---
Pt extubated at this time. All medication infusions stopped at this time.
--- NOTE | 2021-04-05 13:23 | CPS ---
patient was terminally extubated
--- NOTE | 2021-04-05 15:00 | NURSING ---
Central line, x2 peripheral IV's and shah catheter removed at this time
--- NOTE | 2021-04-05 15:28 | NURSING ---
pt terminally extubated at 1305. Time of 1415.
--- NOTE | 2021-04-07 18:46 | PCM.DEATH ---
Preliminary Cause of Preliminary Cause of Preliminary Cause of : 1 hypoxia secondary to bacterial pneumonia #2 septic shock secondary to bacterial pneumonia #3 bacterial pneumonia-etiology unclear #4 acute combined respiratory failure secondary to bacterial pneumonia 5 non-STEMI type II Time of : 1415 on 04/05/2021 Date of Admission: 04/03/21 Date of : 04/05/21 Principle Diagnosis Problem List: Active and Suspected Problems (Updated 04/03/21 @ 02:[address] Yenifer Treadwell, DO) Stage I pressure ulcer of sacral region (Acute) Acute respiratory failure with hypoxia (Acute) Coagulopathy (Acute) NSTEMI, initial episode of care (Acute) Hypokalemia (Acute) Hypernatremia (Acute) DEEPIKA (acute kidney injury) (Acute) Acute dehydration (Acute) Septic shock (Acute) Acute febrile illness (Acute) Hospital Course 61-year-old white male was brought to the emergency room at [facility] from a local extended care facility have been found down for an unknown length of time there. Patient was found to be severely hypoxic and was emergently intubated when he reached the ER, chest x-ray showed left lower lobe infiltrate and patient had a rapid COVID-19 test. Patient was felt to have septic shock due to low blood pressure, he was given IV antibiotics and admitted to the ICU for further care. In the ICU he was seen by critical care and infectious diseases. Patient's medical condition did not continue to improve in the ICU and conversations were carried out with the patient's son who desired a terminal extubation. On 04/05/2021, patient was medicated and taken off the ventilator, he a short time later at 1415 patient had no respirations and blood pressure on exam, patient's son was present at the time of his . Visit Charges Inpatient E&M: 95452 Disch Hosp
== END 2021-04-05 15:30 | DRG 871 ==
LOC: ED 04-03 01:57 → ICU 04-03 02:21
PROVIDERS: Internal Medicine Critical Care Medicine; Admitting Provider Internal Medicine; Emergency Provider Emergency Medicine; PCP Family Medicine; Visit Provider Internal Medicine
DX: A41.9 Sepsis, unspecified organism (principal); J69.0 Pneumonitis due to inhalation of food and vomit; R65.21 Severe sepsis with septic shock; J96.01 Acute respiratory failure with hypoxia; J96.02 Acute respiratory failure with hypercapnia; I21.4 Non-ST elevation (NSTEMI) myocardial infarction; K72.00 Acute and subacute hepatic failure without coma; J15.9 Unspecified bacterial pneumonia; G92.8 Other toxic encephalopathy; N17.9 Acute kidney failure, unspecified; E87.0 Hyperosmolality and hypernatremia; D68.9 Coagulation defect, unspecified; E87.2 Acidosis; E86.0 Dehydration; E87.6 Hypokalemia; E87.8 Other disorders of electrolyte and fluid balance, not elsewhere classified; Z20.822 Contact with and (suspected) exposure to COVID-19; L89.151 Pressure ulcer of sacral region, stage 1; E78.5 Hyperlipidemia, unspecified; F20.9 Schizophrenia, unspecified; F31.9 Bipolar disorder, unspecified; F10.21 Alcohol dependence, in remission; Z87.891 Personal history of nicotine dependence
CPT/HCPCS: 31500; 31720; 36556; 36600; 51702; 70450; 70551; 71045; 71275; 76705; 80053; 80061; 81001; 82140; 82803; 83605; 83735; 84100; 84443; 84484; 85025; 85379; 85384; 85610; 85730; 86850; 86900; 86901; 87040; 87070; 87086; 87205; 87426; 87449; 87635; 87641; 87804; 87807; 93005; 93306; 94002; 94003; 95819; 97802; 99251; 99285; J7030; J7050; Q9967; U0005; A4216; G0463; J0295; J3490; U0003